=== PATIENT | female | born 1950 | race Caucasian/White ===

== ENCOUNTER → 2018-02-18 10:24 | Outpatient (CLI) | payer MEDICARE, OTHER, SELFPAY ==
[2018-02-18 11:04] LABS: Alanine Aminotransferase 47 IU/L (9-52); Albumin 4.5 g/dL (3.5-5.0); Albumin Globulin Ratio 1.6 (1.0-2.8); Alkaline Phosphatase 64 U/L (38-126); Aspartate Aminotransferase 41 IU/L (14-36); BUN Creatinine Ratio 21.4 (6-22); Bilirubin Total 0.7 mg/dL (0.2-1.3); Blood Urea Nitrogen 15 mg/dL (7-17); Calcium 9.9 mg/dL (8.4-10.2); Carbon Dioxide 30 mmol/L (22-32); Chloride 102 mmol/L (98-107); Estimated Glomerular Filt Rate > 60.0 mL/min (>60); Globulin 2.8 g/dL (1.7-4.1); Glucose 93 mg/dL (80-110); HEMOLYSIS < 15 (0-50); Potassium 4.2 mmol/L (3.4-5.1); Sodium 142 mmol/L (137-145); Total Protein 7.3 g/dL (6.3-8.2)
[2018-02-18 11:40] LABS: Vitamin D 25 Hydroxy (D3) 36.5 ng/mL (30.0-100.0)
[2018-02-18 15:54] LABS: Microalbumi Creatinin Ratio Ur 37.4 ug/mg CR (<30); Microalbumin Urine Random < 0.6 mg/dL (0-1.6)
== END ==
PROVIDERS: Visit Provider Physician Assistant
DX: I10 Essential (primary) hypertension (principal); M81.0 Age-related osteoporosis without current pathological fracture
CPT/HCPCS: 36415; 80053; 82043; 82306; 82570

== ENCOUNTER → 2018-08-26 11:44 | Outpatient (CLI) | payer MEDICARE, OTHER, SELFPAY ==
[2018-08-26 15:40] LABS: Alanine Aminotransferase 17 IU/L (9-52); Albumin 4.4 g/dL (3.5-5.0); Albumin Globulin Ratio 1.6 (1.0-2.8); Alkaline Phosphatase 58 U/L (38-126); Aspartate Aminotransferase 24 IU/L (14-36); Bilirubin Total 0.8 mg/dL (0.2-1.3); Blood Urea Nitrogen 14 mg/dL (7-17); Calcium 9.4 mg/dL (8.4-10.2); Carbon Dioxide 29 mmol/L (22-32); Chloride 103 mmol/L (98-107); Estimated Glomerular Filt Rate > 60.0 mL/min (>60); Globulin 2.7 g/dL (1.7-4.1); Glucose 91 mg/dL (80-110); HEMOLYSIS < 15 (0-50); Potassium 4.3 mmol/L (3.4-5.1); Sodium 139 mmol/L (137-145); Total Protein 7.1 g/dL (6.3-8.2)
== END ==
PROVIDERS: PCP Physician Assistant; Visit Provider Physician Assistant
DX: I10 Essential (primary) hypertension (principal); M81.0 Age-related osteoporosis without current pathological fracture
CPT/HCPCS: 36415; 80053; 82306

== ENCOUNTER 2018-10-27 13:27 | Day surgery (SDC) | payer MEDICARE, OTHER, SELFPAY ==
[2018-10-27 13:54] VITALS: BP 132/78; PULSE 96; RESP 14; TEMP 36.6; O2SAT 100; BMI 22.6
[2018-10-27] MEDS: SODIUM CHLORIDE 0.9% 1,000 ML 200 ML IV (14:09)
--- NOTE | 2018-10-27 14:27 | PM.HP.1 ---
History of Present Illness Date Patient Seen: 10/27/18 Time Patient Seen: 14:27 Chief complaint: 42047 Narrative: Patient presents for colorectal screening. They had a previous colonoscopy 5 years ago where a polyp was identified. On further history denies any recent gastrointestinal symptoms. No nausea, vomiting, abdominal pain, loss of appetite, unexplained weight loss, change in bowel habits, diarrhea, constipation, melena, hematochezia, or bright red blood per rectum. Patient History Medical History Asthma (Chronic ~1999) Chronic cough (Chronic ~1999) Hypertension (Chronic 1999) Osteoporosis (Chronic 2018) Surgical History Anesthesia (Resolved) History of elbow surgery (Resolved ~2013) History of eye surgery (Resolved ~1955) Family History (Updated 02/21/18 @ 14:46 by Nat Belcher) Father Diabetes mellitus Dementia Mother Congestive heart failure Hypertension Sister Heart disease Sister No problems noted. Social History household members: spouse Smoking Status: Never smoker second hand exposure: No alcohol intake: current (wine every couple of days.) substance use type: does not use Family & Social History Family History Father Diabetes mellitus Dementia Mother Congestive heart failure Hypertension Sister Heart disease Sister No problems noted. Social History: household members spouse Tobacco & Substance use: Smoking Status Never smoker alcohol intake current Meds Home Medications Medication Instructions Recorded Confirmed Type calcium gluconate 60 mg calcium 60 mg PO QAM tab 02/16/18 10/27/18 History (650 mg) tablet cholecalciferol (vitamin D3) 2,000 2,000 unit PO DAILY 02/16/18 10/27/18 History unit capsule alendronate 70 mg tablet 70 mg PO QWEEK #12 tab 07/12/18 10/27/18 Rx losartan 25 mg tablet 25 mg PO DAILY #90 tab 07/12/18 10/27/18 Rx varicella-zoster glycoE vacc-[id number] 50 mcg IM ONCE #1 each 07/12/18 10/27/18 Rx adj(PF) 50 mcg/0.5 mL IM susp, kit Allergies Allergy/AdvReac Type Severity Reaction Status Date / Time No Known Drug Allergies Allergy Verified 07/12/18 08:22 Review of Systems Review of Systems All systems reviewed & are unremarkable except as noted in HPI and below Exam Vital Signs (past 8 hours): - 10/27/18 13:54 Temperature 97.8 F Pulse Rate 96 H Respiratory Rate 14 Blood Pressure 132/78 Pulse Oximetry 100 Oxygen Delivery Method Room Air Narrative Exam Narrative: General-adult woman no acute distress, well nourished HEENT-moist mucous membranes, no scleral icterus Neck-supple with full range of motion, no lymphadenopathy Chest- no labored respirations, clear to auscultation bilaterally Cardiac-regular rate and rhythm Abdomen-soft, nontender, non distended Extremities-no edema, warm well perfused Neurological-alert and oriented x 3. No focal deficits Skin-normal temperature and turgor, no rashes or ulcers Assessment & Plan (1) Screening for colorectal cancer: Current visit: Yes Status: Acute Assessment & Plan narrative: Patient is requiring colorectal screening. Colonoscopy is recommended. Technical details were discussed. Risks, benefits, alternatives explained. Risks including but not limited to sedation, aspiration, bleeding, pain, missed lesion, incomplete examination, need for further radiographic studies, colonic perforation, need for major abdominal surgery, and all attendant risks major surgery were discussed at length. All questions were answered to their satisfaction, and they voiced understanding.
[2018-10-27] MEDS: GLUCAGON,HUMAN RECOMBINANT 1 MG/ML VIAL IV (14:41)
[2018-10-27] MEDS: MIDAZOLAM 5 MG/5 ML VIAL IV (14:51)
[2018-10-27] MEDS: fentaNYL 250 MCG/5 ML INJ IV (14:52)
[2018-10-27 15:05] VITALS: BP 105/57; PULSE 69; RESP 14; TEMP 36.6; O2SAT 97
[2018-10-27 15:10] VITALS: BP 103/59; PULSE 68; RESP 15; O2SAT 98
--- NOTE | 2018-10-27 15:11 | PM.OP.ENDO ---
Operative Date/Time/Diagnoses Date of procedure: 10/27/18 Time of procedure: 15:11 Pre-op diagnosis: screening colonoscopy previous adenoma 5 years ago Post-op diagnosis: same Procedure & Clinicians Study performed: Colonoscopy Same procedure as scheduled: Yes Indications: 67-year-old female with a previous adenomatous polyp 5 years ago presents for screening colonoscopy Surgeon: Salvatore Grant Procedure Notes SCOAP/Timeout: Performed Procedure in detail: Chief digital rectal exam was performed which was negative for masses. The scope was carefully inserted into the rectum and advanced to the colon. This news ileocecal valve was reached and identified. The scope was then carefully withdrawn. The colon was notable only for diverticulosis. The scope was retroflexed within the rectum demonstrated grade 1 internal hemorrhoids. Scope withdrawal time: 9 Sedation minutes: 27 Findings: diverticulosis Specimen(s): none sent Complications: none Impression: Normal colonoscopy Recommendations: Colonscopy in 10 years Disposition: same day surgery
[2018-10-27 15:15] VITALS: BP 100/58; PULSE 68; RESP 15; O2SAT 98
[2018-10-27 15:30] VITALS: BP 107/68; PULSE 60; RESP 12; TEMP 36.4; O2SAT 99
== END 2018-10-27 15:42 | disposition home or self-care (01) ==
PROVIDERS: PCP Physician Assistant; Visit Provider Surgery
PROC: 0DJD8ZZ Inspection of Lower Intestinal Tract, Via Natural or Artificial Opening Endoscopic (ICD-10-PCS; CPT 45378; principal; 2018-10-27 15:30)
DX: Z86.010 Personal history of colon polyps (principal); K57.30 Diverticulosis of large intestine without perforation or abscess without bleeding; K64.0 First degree hemorrhoids; I10 Essential (primary) hypertension; M81.0 Age-related osteoporosis without current pathological fracture
CPT/HCPCS: G0105; 99152; J1610; J2250; J3010

== ENCOUNTER → 2019-03-15 09:26 | Outpatient (CLI) | payer MEDICARE, OTHER, SELFPAY ==
--- NOTE | 2019-03-15 09:28 | DI.MG.S_ITS ---
BILATERAL DIGITAL SCREENING MAMMOGRAM 3D/2D WITH CAD: 03/15/2019 CLINICAL: Routine screening. Comparison is made to exams dated: 07/17/2016 mammogram, 06/07/2014 mammogram, and 05/24/2013 mammogram - [facility]. The tissue of both breasts is heterogeneously dense. This may lower the sensitivity of mammography. Current study was also evaluated with a Computer Aided Detection (CAD) system. No significant masses, calcifications, or other findings are seen in either breast. There has been no significant interval change. IMPRESSION: NEGATIVE There is no mammographic evidence of malignancy. A 1 year screening mammogram is recommended. This exam was interpreted at Station ID: [id number]. NOTE: For mammograms, a report in lay terms will be sent to the patient. Approximately 15% of breast malignancies will not be visualized mammographically. In the management of a palpable breast mass, a negative mammogram must not discourage biopsy of a clinically suspicious lesion. Electronically Signed By: Lm dacosta/new:03/20/2019 18:41:54 letter sent: Normal Exam ACR BI-RADS Category 1: Negative 3341F
== END ==
PROVIDERS: PCP Physician Assistant; Visit Provider Physician Assistant
DX: Z12.31 Encounter for screening mammogram for malignant neoplasm of breast (principal); M81.0 Age-related osteoporosis without current pathological fracture; Z78.0 Asymptomatic menopausal state; Z82.62 Family history of osteoporosis
CPT/HCPCS: 77063; 77067; 77080

== ENCOUNTER → 2020-03-18 08:25 | Outpatient (CLI) | payer MEDICARE, OTHER, SELFPAY ==
--- NOTE | 2020-03-18 11:56 | DI.MG.S_ITS ---
BILATERAL DIGITAL SCREENING MAMMOGRAM 3D/2D WITH CAD: 03/18/2020 CLINICAL: Routine screening. Comparison is made to exams dated: 07/17/2016 mammogram - [facility], 03/15/2019 mammogram - [facility], and 06/07/2014 mammogram - [facility]. The tissue of both breasts is heterogeneously dense. This may lower the sensitivity of mammography. Current study was also evaluated with a Computer Aided Detection (CAD) system. No significant masses, calcifications, or other findings are seen in either breast. There has been no significant interval change. IMPRESSION: NEGATIVE There is no mammographic evidence of malignancy. A 1 year screening mammogram is recommended. This exam was interpreted at Station ID: [id number]. NOTE: For mammograms, a report in lay terms will be sent to the patient. Approximately 15% of breast malignancies will not be visualized mammographically. In the management of a palpable breast mass, a negative mammogram must not discourage biopsy of a clinically suspicious lesion. Electronically Signed By: Bebeto art/new:03/18/2020 16:50:40 letter sent: Normal Exam ACR BI-RADS Category 1: Negative 3341F
[2020-03-19 18:11] LABS: Hepatitis B Surface Antigen NEGATIVE s/c (NEGATIVE)
== END ==
PROVIDERS: PCP Nurse Practitioner; Referring Provider Nurse Practitioner; Visit Provider Nurse Practitioner
DX: Z12.31 Encounter for screening mammogram for malignant neoplasm of breast (principal)
CPT/HCPCS: 36415; 77063; 77067; 87340

== ENCOUNTER → 2020-04-05 08:41 | Outpatient (CLI) | payer MEDICARE, OTHER, SELFPAY ==
[2020-04-05] MEDS: COVID-19 VACC #1, MRNA(MOD) 100 MCG/0.5 ML VIAL IM (08:43)
== END ==
PROVIDERS: PCP Nurse Practitioner; Visit Provider Internal Medicine
DX: Z23 Encounter for immunization (principal)
CPT/HCPCS: 0011A; 91301

== ENCOUNTER → 2020-05-03 09:00 | Outpatient (CLI) | payer MEDICARE, OTHER, SELFPAY ==
[2020-05-03] MEDS: COVID-19 VACC #2, MRNA(MOD) 100 MCG/0.5 ML VIAL IM (09:04)
== END ==
PROVIDERS: PCP Nurse Practitioner; Visit Provider Internal Medicine
DX: Z23 Encounter for immunization (principal)
CPT/HCPCS: 0012A; 91301

== ENCOUNTER → 2021-02-04 07:21 | Outpatient (CLI) | payer MEDICARE, OTHER, SELFPAY ==
[2021-02-04 08:44] LABS: Hemoglobin A1C% w Est Avg Glu 4.9 % (4.0-6.0)
[2021-02-04 08:50] LABS: Alanine Aminotransferase 23 IU/L (<35); Albumin 4.2 g/dL (3.5-5.0); Albumin Globulin Ratio 1.6 (1.0-2.8); Alkaline Phosphatase 52 U/L (38-126); Aspartate Aminotransferase 31 IU/L (14-36); BUN Creatinine Ratio 18.8 (6-22); Bilirubin Total 0.7 mg/dL (0.2-1.3); Blood Urea Nitrogen 16 mg/dL (7-17); Calcium 9.3 mg/dL (8.4-10.2); Carbon Dioxide 29 mmol/L (22-32); Chloride 103 mmol/L (98-107); Cholesterol 205 mg/dL (140-199); Estimated Glomerular Filt Rate > 60.0 mL/min (>60); Globulin 2.7 g/dL (1.7-4.1); Glucose 98 mg/dL (80-110); HDL Cholesterol 75 mg/dL (40-60); HEMOLYSIS < 15 (0-50); LDL Cholesterol Calculated 118 mg/dL (<100); Potassium 4.4 mmol/L (3.4-5.1); Sodium 139 mmol/L (137-145); Total Protein 6.9 g/dL (6.3-8.2); Triglycerides 58 mg/dL (35-150)
[2021-02-04 08:52] LABS: Creatinine Urine Random 164.7 mg/dL
[2021-02-04 08:57] LABS: Microalbumi Creatinin Ratio Ur 21.8 ug/mg CR (<30); Microalbumin Urine Random 3.6 mg/dL (0-1.6)
[2021-02-04 09:10] LABS: Free T3, Triiodothyronine Free 4.13 pg/mL (2.77-5.27)
[2021-02-04 09:24] LABS: Thyroid Stimulating Hormone 2.65 uIU/mL (0.47-4.68)
== END ==
PROVIDERS: PCP Nurse Practitioner; Referring Provider Nurse Practitioner; Visit Provider Nurse Practitioner
DX: Z79.899 Other long term (current) drug therapy (principal); E78.5 Hyperlipidemia, unspecified; I10 Essential (primary) hypertension; M85.80 Other specified disorders of bone density and structure, unspecified site; Z12.11 Encounter for screening for malignant neoplasm of colon; Z12.12 Encounter for screening for malignant neoplasm of rectum
CPT/HCPCS: 36415; 80053; 80061; 82043; 82570; 83036; 84439; 84443; 84481

== ENCOUNTER → 2021-02-24 13:54 | Outpatient (CLI) | payer MEDICARE, OTHER, SELFPAY ==
--- NOTE | 2021-03-10 08:53 | P.HOLT.S_ITS ---
Saturation Equipment Operator Report Referral & Results Date Patient Seen: 02/24/21 Requesting provider: Jerri White Indication: Arrhythmia Duration of monitoring (days): 3 Diary information: There were 3 patient triggered events and 3 patient diary entries Patient triggered events were variably associated with (within 45 seconds) sinus rhythm, ventricular bigeminy and simple PVCs Patient diary events were variably associated with (within 45 seconds) sinus rhythm, simple PVCs, ventricular bigeminy and ventricular bigeminy Data: Minimum heart rate identified was 50 beats per minute at 14:41 on 02/24/2021 Maximum sinus heart rate was 144 beats per minute at 13:05 on 02/27/2021 Maximum overall heart rate was 176 beats per minute at 18:18 on 02/25/2021 during a run of SVT Less than 1% of identified beats were supraventricular ectopic in origin Approximately 17.4% of identified beats were ventricular ectopic in origin which classify them as frequent, this would include a 1 minute 42nd run of ventricular bigeminy and 56.2nd run of ventricular trigeminy There were 2 runs of nonsustained ventricular tachycardia with the fastest and longest run being 4 beats at 162 beats per minute There were 10 runs of SVT the fastest being 16 beats at a rate of 176 beats per minute which was also the longest run. Some of these episodes of SVT may well be more true atrial tachycardia Impression: 3 day athletic monitor demonstrating rare runs of ventricular tachycardia and rare and very brief runs of SVT as well as frequent PVCs including very short duration runs of ventricular bigeminy and ventricular trigeminy Difficult to correlate patient reported symptoms with any one particular dysrhythmia as noted above
== END ==
PROVIDERS: PCP Nurse Practitioner; Referring Provider Nurse Practitioner; Visit Provider Nurse Practitioner
DX: I49.9 Cardiac arrhythmia, unspecified (principal)
CPT/HCPCS: 93242; 93244

== ENCOUNTER → 2021-03-19 08:20 | Outpatient (CLI) | payer MEDICARE, OTHER, SELFPAY ==
--- NOTE | 2021-03-19 | DI.MG.S_ITS ---
BILATERAL DIGITAL SCREENING MAMMOGRAM 3D/2D WITH CAD: 03/19/2021 CLINICAL: Routine screening. Comparison is made to exams dated: 03/18/2020 mammogram, 03/15/2019 mammogram - [facility], and 07/17/2016 mammogram - [facility]. The tissue of both breasts is heterogeneously dense. This may lower the sensitivity of mammography. Current study was also evaluated with a Computer Aided Detection (CAD) system. No significant masses, calcifications, or other findings are seen in either breast. There has been no significant interval change. IMPRESSION: NEGATIVE There is no mammographic evidence of malignancy. A 1 year screening mammogram is recommended. This exam was interpreted at Station ID: [id number]. NOTE: For mammograms, a report in lay terms will be sent to the patient. Approximately 15% of breast malignancies will not be visualized mammographically. In the management of a palpable breast mass, a negative mammogram must not discourage biopsy of a clinically suspicious lesion. Electronically Signed By: Bebeto art/new:03/19/2021 09:58:34 letter sent: Normal Exam ACR BI-RADS Category 1: Negative 3341F
== END ==
PROVIDERS: PCP Nurse Practitioner; Referring Provider Nurse Practitioner; Visit Provider Nurse Practitioner
DX: Z12.31 Encounter for screening mammogram for malignant neoplasm of breast (principal)
CPT/HCPCS: 77063; 77067

== ENCOUNTER → 2021-05-23 06:59 | Outpatient (CLI) | payer MEDICARE, OTHER, SELFPAY ==
[2021-05-23 08:21] LABS: Add Manual Diff / Slide Review NO; Basophils Absolute Auto 0 /uL (0-100); Basophils Percent Auto 1.1 % (0-2); Eosinophils Absolute Auto 100 /uL (0-450); Hematocrit 34.9 % (36-46); Lymphocytes Absolute Auto 1600 /uL (1100-4500); Lymphocytes Percent Auto 36.2 % (25-40); Mean Corpuscular HGB Conc 34.4 % (30-36); Mean Corpuscular Hemoglobin 31.1 PG (26-34); Mean Corpuscular Volume 90.6 fL (80-100); Monocytes Absolute Auto 400 /uL (0-900); Monocytes Percent Auto 9.5 % (3-14); Neutrophils Absolute Auto 2300 /uL (1500-7000); Neutrophils Percent Auto 51.2 % (50-75); Platelet Count 171 X10^3/uL (150-400); Red Blood Cell Count 3.85 X10^6/uL (4.0-5.2); Red Cell Distribution Width 12.9 % (11.6-14.8); White Blood Cell Count 4.5 X10^3/uL (4.5-11.0)
[2021-05-23 08:41] LABS: BUN Creatinine Ratio 18.2 (6-22); Blood Urea Nitrogen 14 mg/dL (7-17); Carbon Dioxide 27 mmol/L (22-32); Chloride 107 mmol/L (98-107); Cholesterol 183 mg/dL (140-199); Estimated Glomerular Filt Rate > 60.0 mL/min (>60); Glucose 95 mg/dL (80-110); HDL Cholesterol 59 mg/dL (40-60); HEMOLYSIS < 15 (0-50); LDL Cholesterol Calculated 108 mg/dL (<100); Magnesium 1.9 mg/dL (1.6-2.3); Potassium 3.9 mmol/L (3.4-5.1); Sodium 141 mmol/L (137-145); Triglycerides 81 mg/dL (35-150)
[2021-05-23 09:13] LABS: TSH w/ Reflex to FT4 2.86 uIU/mL (0.47-4.68)
== END ==
PROVIDERS: PCP Nurse Practitioner; Referring Provider Internal Medicine Cardiovascular Disease; Visit Provider Internal Medicine Cardiovascular Disease
DX: I10 Essential (primary) hypertension (principal); I49.3 Ventricular premature depolarization; R00.2 Palpitations; Z72.89 Other problems related to lifestyle
CPT/HCPCS: 36415; 80048; 80061; 83735; 84443; 85025

== ENCOUNTER → 2021-07-04 13:35 | Outpatient (CLI) | payer MEDICARE, OTHER, SELFPAY ==
--- NOTE | 2021-07-04 | DI.NM.S_ITS ---
PROCEDURE: NM EXERCISE TREADMILL NON NUC COMPARISON: None. INDICATIONS: Ventricular premature depolarization FINDINGS: Rest ECG sinus rhythm with PVCs. Olegario protocol 8:19, maximum heart rate 151 (101% peak predicted), peak blood pressure 180/102, 10.1 METS, HENRRY -16%. Stress ECG sinus tachycardia, no ST segment changes. Recovery ECG sinus rhythm, one episode 3 beats NSVT, PVCs in a bigeminal pattern. Patient did not have exertional chest discomfort. IMPRESSION: No evidence of exercise-induced ischemia. Baseline PVCs with increased frequency post exercise. Good exercise capacity. Dictated by: Aneta Huerta D.O. on 07/04/2021 at 16:14 Approved by: Aneta Huerta D.O. on 07/04/2021 at 16:20
--- NOTE | 2021-07-04 | DI.ECHO.S_ITS ---
[place] +---------+ : : [address] [place] : : : : [id number] : : : : Phone: [phone]+ Echocardiogram Report + + :Name: SANTIAGO RAMIREZ Study Date: 07/04/2021 Height: 68 in : :[facility] ReadingLocation: Weight: 160 lb : : Gender: Female BSA: 1.9 m2 : :: 1950 Age: 70 yrs BP: 185/102 mmHg: :Reason For Study: Arrhythmia : :Ordering Physician: NIKHIL, : :CHRIST Performed By: Zain Metz : :Referring: CHRIST REYES : + + Interpretation Summary 1) Mildly to moderately enlarged left ventricle with normal systolic function (EF 55-60%). 2) Normal right ventricular size and function. 3) There is mild aortic stenosis. 4) There is moderate mitral regurgitation. 5) There is mild to moderate aortic regurgitation. 6) The IVC is dilated (diameter is greater than 2.1 cm) and it collapses less than 50% with a sniff. This suggests a high right atrial pressure of 15 mm Hg. 7) No prior echo available for comparison. Procedure: The study quality was technically adequate. A two-dimensional transthoracic echocardiogram with color flow and Doppler was performed. There is no prior echocardiogram noted for this patient. Left Ventricle: The left ventricle is mild-moderately dilated. There is normal left ventricular wall thickness. Left ventricular systolic function is normal. The ejection fraction is estimated to be 55-60%. There are no focal wall motion abnormalities. Diastolic function could not be accurately assessed due to confounding valvular disease. Right Ventricle: The right ventricle is normal in size and function. Atria: The left atrium is severely dilated. Right atrial size is normal. The interatrial septum grossly appears intact with no obvious evidence for an atrial septal defect. Mitral Valve: The mitral valve leaflets appear mildly thickened, but open well. There is mild mitral annular calcification. There is moderate mitral regurgitation. Aortic Valve: The aortic valve is grossly normal. There is mild aortic stenosis. There is mild to moderate aortic regurgitation. Tricuspid Valve: The tricuspid valve is normal in structure and function. There is mild tricuspid regurgitation. Pulmonary artery pressures cannot be estimated because of the lack of a measurable TR jet velocity. Pulmonic Valve: The pulmonic valve is not well visualized. There is no pulmonic valvular regurgitation. Great Vessels: The aortic root is normal size. The ascending aorta could not be visualized. The IVC is dilated (diameter is greater than 2.1 cm) and it collapses less than 50% with a sniff. This suggests a high right atrial pressure of 15 mm Hg. Pericardium/ Pleura There is no pericardial effusion. There is no pleural effusion. MMode/2D Measurements & Calculations LVIDd: 5.8 cm LVOT diam: 1.9 cm LVIDs: 4.0 cm Ao root diam: 3.0 cm FS: 31.3 % IVSd: 0.94 cm LVPWd: 0.87 cm LV knowles. diameter/BSA (cm/m^2): 3.1 LV sys. diameter/BSA (cm/m^2): 2.1 LA A2 area: 24.3 cm2 RA long axis: 3.8 cm LA A4 area: 27.7 cm2 RA area: 9.8 cm2 LA length (vol): 6.0 cm RA vol: 21.5 ml LA vol: 95.4 ml RA : 11.6 ml/m2 LA vol index: 51.3 ml/m2 IVC diam: 2.4 cm TAPSE: 2.9 cm Doppler Measurements & Calculations Ao V2 max: 163.1 cm/sec LVOT Max Jerson: 102.7 cm/sec Ao V2 mean: 111.6 cm/sec LV V1 max P.2 mmHg Ao max P.6 mmHg LV V1 VTI: 22.9 cm Ao mean P.6 mmHg MIHIR(I,D): 1.8 cm2 Ao V2 VTI: 35.0 cm MIHIR(V,D): 1.7 cm2 sev ratio: 0.65 MIHIR indexed to BSA (cm^2/m^2): 0.95 AI P1/2t: 482.1 msec AI dec slope: 338.0 cm/sec2 MV E max jerson: 102.8 cm/sec MR VTI: 239.6 cm MV A max jerson: 71.0 cm/sec MV E/A: 1.4 Med Peak E' Jerson: 9.1 cm/sec E/E' med: 11.3 Lat Peak E' Jerson: 10.3 cm/sec E/E' lat: 9.9 E/e' average: 10.6 MV dec time: 0.21 sec MR ERO: 0.15 cm2 MR PISA: 3.2 cm2 SV(LVOT): 61.9 ml MR flow rate: 98.5 cm3/sec MR PISA radius: 0.71 cm Reading Physician:03:02 PM
== END ==
PROVIDERS: PCP Nurse Practitioner; Referring Provider Internal Medicine Cardiovascular Disease; Visit Provider Internal Medicine Cardiovascular Disease
DX: I08.3 Combined rheumatic disorders of mitral, aortic and tricuspid valves (principal); I49.3 Ventricular premature depolarization
CPT/HCPCS: 93017; 93306

== ENCOUNTER → 2022-02-02 08:56 | Outpatient (CLI) | payer MEDICARE, OTHER, SELFPAY ==
[2022-02-02 10:01] LABS: Add Manual Diff / Slide Review NO; Basophils Absolute Auto 0 /uL (0-100); Basophils Percent Auto 0.5 % (0-2); Eosinophils Absolute Auto 100 /uL (0-450); Eosinophils Percent Auto 1.1 % (2-4); Hemoglobin 12.7 g/dL (12.0-16.0); Lymphocytes Absolute Auto 1400 /uL (1100-4500); Lymphocytes Percent Auto 25.8 % (25-40); Mean Corpuscular HGB Conc 33.5 % (30-36); Mean Corpuscular Hemoglobin 29.9 PG (26-34); Mean Corpuscular Volume 89.2 fL (80-100); Monocytes Absolute Auto 600 /uL (0-900); Monocytes Percent Auto 10.6 % (3-14); Neutrophils Absolute Auto 3200 /uL (1500-7000); Platelet Count 218 X10^3/uL (150-400); Red Blood Cell Count 4.26 X10^6/uL (4.0-5.2); Red Cell Distribution Width 13.1 % (11.6-14.8); White Blood Cell Count 5.2 X10^3/uL (4.5-11.0)
[2022-02-02 10:11] LABS: BUN Creatinine Ratio 22.4 (6-22); Blood Urea Nitrogen 19 mg/dL (7-17); Calcium 9.4 mg/dL (8.4-10.2); Carbon Dioxide 30 mmol/L (22-32); Chloride 105 mmol/L (98-107); Estimated Glomerular Filt Rate > 60 mL/min (>60); Glucose 100 mg/dL (80-110); HEMOLYSIS < 15 (0-50); Potassium 4.1 mmol/L (3.4-5.1); Sodium 139 mmol/L (137-145)
== END ==
PROVIDERS: PCP Nurse Practitioner; Referring Provider Internal Medicine Cardiovascular Disease; Visit Provider Internal Medicine Cardiovascular Disease
DX: I10 Essential (primary) hypertension (principal)
CPT/HCPCS: 36415; 80048; 85025

== ENCOUNTER → 2022-04-23 12:23 | Outpatient (CLI) | payer MEDICARE, OTHER, SELFPAY ==
--- NOTE | 2022-04-23 12:24 | DI.MG.S_ITS ---
BILATERAL DIGITAL SCREENING MAMMOGRAM 3D/2D WITH CAD: 04/23/2022 CLINICAL: Routine screening. Comparison is made to exams dated: 03/19/2021 mammogram, 03/18/2020 mammogram, and 03/15/2019 mammogram - [facility]. Both breasts are heterogeneously dense, which may obscure small masses (category c / 51-75% glandular tissue). Current study was also evaluated with a Computer Aided Detection (CAD) system. No significant masses, calcifications, or other findings are seen in either breast. There has been no significant interval change. IMPRESSION: NEGATIVE There is no mammographic evidence of malignancy. A 1 year screening mammogram is recommended. Based on the Tyrer Cuzick model (a risk assessment model) the patient's lifetime risk is 6.6% and her 10 year risk is 4.2%. According to the ACR, ACS, and NCCN guidelines, an annual breast MRI exam along with mammogram is recommended if the patient's lifetime risk is 20% or greater. This exam was interpreted at Station ID: [id number]. NOTE: For mammograms, a report in lay terms will be sent to the patient. Approximately 15% of breast malignancies will not be visualized mammographically. In the management of a palpable breast mass, a negative mammogram must not discourage biopsy of a clinically suspicious lesion. Electronically Signed By: Bebeto art/new:04/23/2022 13:51:07 letter sent: Normal Exam ACR BI-RADS Category 1: Negative 3341F
== END ==
PROVIDERS: PCP Nurse Practitioner; Referring Provider Nurse Practitioner; Visit Provider Nurse Practitioner
DX: Z12.31 Encounter for screening mammogram for malignant neoplasm of breast (principal)
CPT/HCPCS: 77063; 77067

== ENCOUNTER → 2022-09-30 15:44 | Outpatient (CLI) | payer MEDICARE, OTHER, SELFPAY ==
[2022-09-30 17:18] LABS: Add Manual Diff / Slide Review NO; Basophils Absolute Auto 100 /uL (0-100); Eosinophils Absolute Auto 100 /uL (0-450); Hematocrit 36.6 % (36-46); Hemoglobin 12.5 g/dL (12.0-16.0); Lymphocytes Absolute Auto 1500 /uL (1100-4500); Lymphocytes Percent Auto 26.6 % (25-40); Mean Corpuscular HGB Conc 34.1 % (30-36); Mean Corpuscular Hemoglobin 31.1 PG (26-34); Mean Corpuscular Volume 91.4 fL (80-100); Monocytes Absolute Auto 600 /uL (0-900); Monocytes Percent Auto 10.7 % (3-14); Neutrophils Absolute Auto 3500 /uL (1500-7000); Neutrophils Percent Auto 60.7 % (50-75); Platelet Count 218 X10^3/uL (150-400); Red Cell Distribution Width 13.1 % (11.6-14.8); White Blood Cell Count 5.7 X10^3/uL (4.5-11.0)
[2022-09-30 17:37] LABS: Alanine Aminotransferase 27 IU/L (<35); Albumin 4.2 g/dL (3.5-5.0); Albumin Globulin Ratio 1.4 (1.0-2.8); Alkaline Phosphatase 61 U/L (38-126); Aspartate Aminotransferase 31 IU/L (14-36); BUN Creatinine Ratio 29.7 (6-22); Bilirubin Total 0.3 mg/dL (0.2-1.3); Blood Urea Nitrogen 22 mg/dL (7-17); C-Reactive Protein Quant < 0.5 mg/dL (<1.0); Calcium 9.1 mg/dL (8.4-10.2); Carbon Dioxide 29 mmol/L (22-32); Chloride 101 mmol/L (98-107); Estimated Glomerular Filt Rate > 60 mL/min (>60); Globulin 2.9 g/dL (1.7-4.1); Glucose 93 mg/dL (80-110); HEMOLYSIS < 15 (0-50); Potassium 4.1 mmol/L (3.4-5.1); Sodium 137 mmol/L (137-145); Total Protein 7.1 g/dL (6.3-8.2)
[2022-09-30 17:42] LABS: Erythrocyte Sedimentation Rate 25 MM/HR (0-20)
[2022-09-30 17:43] LABS: Rheumatoid Factor < 8.6 IU/mL (<12.0)
[2022-09-30 17:52] LABS: Free T3, Triiodothyronine Free 3.61 pg/mL (2.77-5.27); Free T4, Direct Thyroxine 0.98 ng/dL (0.78-2.19)
[2022-09-30 18:06] LABS: Thyroid Stimulating Hormone 1.27 uIU/mL (0.47-4.68)
== END ==
PROVIDERS: PCP Nurse Practitioner; Referring Provider Nurse Practitioner; Visit Provider Nurse Practitioner
DX: M35.00 Sjogren syndrome, unspecified (principal); R68.2 Dry mouth, unspecified
CPT/HCPCS: 36415; 80053; 84439; 84443; 84481; 85025; 85651; 86140; 86430

== ENCOUNTER → 2022-10-02 14:10 | Outpatient (CLI) | payer MEDICARE, OTHER, SELFPAY ==
[2022-10-06 19:35] LABS: ANA Screen, IFA Positive (.)
== END ==
PROVIDERS: PCP Nurse Practitioner; Referring Provider Nurse Practitioner; Visit Provider Nurse Practitioner
DX: R70.0 Elevated erythrocyte sedimentation rate (principal)
CPT/HCPCS: 36415; 86038

== ENCOUNTER → 2023-01-07 12:28 | Outpatient (CLI) | payer MEDICARE, OTHER, SELFPAY ==
--- NOTE | 2023-01-07 | DI.ECHO.S_ITS ---
[facility]---------+ [facility] +---------+ : : [address] [place] : : : : [id number] : : : : Phone: [phone]+ Echocardiogram Report + + :Name: SANTIAGO RAMIREZ Study Date: 01/07/2023 Height: 68 in : :[facility] ReadingLocation: Weight: 150 lb : : Gender: Female BSA: 1.8 m2 : :: 1950 Age: 72 yrs BP: 139/80 mmHg: :Reason For Study: MITRAL INSUFFICIENCY : :Ordering Physician: NIKHIL, : :CHRIST Performed By: Bri Gómez : :Referring: CHRIST REYES : + + Interpretation Summary 1) Mildly enlarged left ventricle with normal systolic function (EF 60-65%). 2) Normal right ventricular size and function. 3) There is mild to moderate mitral regurgitation. 4) Compmared to the Echo done 07/04/2021, mitral regurgitatoin has improved from mild-moderate to mild on this study and LV enlargement has improved from mild-moderate to mild on this study. Procedure: A two-dimensional transthoracic echocardiogram with color flow and Doppler was performed. The study quality was technically adequate. Comparison is made with the echocardiogram of 07/04/2021. The patient was in sinus rhythm with heart rates between 63-70 bpm during the exam. Left Ventricle: The left ventricle is mildly dilated. There is normal left ventricular wall thickness. The ejection fraction is estimated to be 60-65%. There are no focal wall motion abnormalities. Right Ventricle: The right ventricle is normal in size and function. Atria: The left atrium is moderately dilated. Right atrial size is normal. There is no Doppler evidence for an interatrial shunt. Mitral Valve: The mitral valve leaflets appear mildly thickened, but open well. There is mild to moderate mitral regurgitation. The mitral regurgitant jet is eccentrically directed. Aortic Valve: The aortic valve opens well. There is mild aortic valve sclerosis. There is no aortic valve stenosis. There is trace aortic regurgitation. Tricuspid Valve: The tricuspid valve is normal in structure and function. The right ventricular systolic pressure is estimated to be at least 28 mmHg based on an estimated right atrial pressure of 8 mm Hg. There is mild tricuspid regurgitation. Pulmonic Valve: The pulmonic valve is not well visualized. There is no pulmonic valvular regurgitation. Great Vessels: The aortic root is normal size. The ascending aorta could not be visualized. The IVC is dilated (diameter is greater than 2.1 cm) yet it collapses greater than 50% with a sniff. This suggests a right atrial pressure of 8 mm Hg. Pericardium/ Pleura There is no pericardial effusion. There is no pleural effusion. MMode/2D Measurements & Calculations LVIDd: 5.4 cm LVOT diam: 2.0 cm LVIDs: 3.7 cm Ao root diam: 2.9 cm FS: 30.0 % Ao Arch Diam (Prox Trans): 2.4 cm EPSS: 0.45 cm IVSd: 0.79 cm LVPWd: 0.76 cm LV knowles. diameter/BSA (cm/m^2): 3.0 LV sys. diameter/BSA (cm/m^2): 2.1 LA A2 area: 23.3 cm2 RA long axis: 4.1 cm LA A4 area: 20.7 cm2 RA area: 12.8 cm2 LA length (vol): 5.5 cm RA vol: 34.2 ml LA vol: 74.7 ml RA : 18.9 ml/m2 LA vol index: 41.3 ml/m2 IVC diam: 2.1 cm RVD1 (basal): 3.7 cm RVD2 (mid): 3.3 cm TAPSE: 1.7 cm Doppler Measurements & Calculations Ao V2 max: 160.9 cm/sec LVOT Max Jerson: 127.4 cm/sec Ao V2 mean: 116.0 cm/sec LV V1 max P.5 mmHg Ao max P.4 mmHg LV V1 VTI: 27.1 cm Ao mean P.0 mmHg MIHIR(I,D): 2.1 cm2 Ao V2 VTI: 40.2 cm MIHIR(V,D): 2.5 cm2 sev ratio: 0.68 MIHIR indexed to BSA (cm^2/m^2): 1.2 AI P1/2t: 574.4 msec AI dec slope: 233.4 cm/sec2 MV E max jerson: 96.6 cm/sec TR max jerson: 222.2 cm/sec MV A max jerson: 59.5 cm/sec TR max P.7 mmHg MV E/A: 1.6 PA V2 max: 102.6 cm/sec Med Peak E' Jerson: 8.6 cm/sec PA V2 mean: 78.6 cm/sec E/E' med: 11.3 PA mean P.7 mmHg Lat Peak E' Jerson: 12.9 cm/sec PA pr(Accel): 27.6 mmHg E/E' lat: 7.5 E/e' average: 9.4 MV dec time: 0.21 sec MR PISA: 1.9 cm2 SV(LVOT): 85.9 ml MR flow rate: 81.1 cm3/sec MR PISA radius: 0.55 cm Reading Physician:04:34 PM
== END ==
PROVIDERS: PCP Nurse Practitioner; Referring Provider Internal Medicine Cardiovascular Disease; Visit Provider Internal Medicine Cardiovascular Disease
DX: I08.3 Combined rheumatic disorders of mitral, aortic and tricuspid valves (principal)
CPT/HCPCS: 93306

== ENCOUNTER → 2023-01-16 08:02 | Outpatient (CLI) | payer MEDICARE, OTHER, SELFPAY ==
[2023-01-16 09:04] LABS: Blood Urea Nitrogen 18 mg/dL (7-17); Calcium 9.5 mg/dL (8.4-10.2); Carbon Dioxide 29 mmol/L (22-32); Chloride 103 mmol/L (98-107); Estimated Glomerular Filt Rate > 60 mL/min (>60); Glucose 99 mg/dL (80-110); HEMOLYSIS < 15 (0-50); Potassium 4.3 mmol/L (3.4-5.1); Sodium 139 mmol/L (137-145)
== END ==
PROVIDERS: PCP Nurse Practitioner; Referring Provider Internal Medicine Cardiovascular Disease; Visit Provider Internal Medicine Cardiovascular Disease
DX: I10 Essential (primary) hypertension (principal)
CPT/HCPCS: 36415; 80048

== ENCOUNTER → 2023-04-28 08:27 | Outpatient (CLI) | payer MEDICARE, OTHER, SELFPAY ==
--- NOTE | 2023-04-28 | DI.MG.S_ITS ---
BILATERAL DIGITAL SCREENING MAMMOGRAM 3D/2D WITH CAD: 04/28/2023 CLINICAL: Routine screening. Comparison is made to exams dated: 04/23/2022 mammogram, 03/19/2021 mammogram, and 03/18/2020 mammogram - [facility]. Both breasts are heterogeneously dense, which may obscure small masses (category c / 51-75% glandular tissue). Current study was also evaluated with a Computer Aided Detection (CAD) system. No significant masses, calcifications, or other findings are seen in either breast. There has been no significant interval change. IMPRESSION: NEGATIVE There is no mammographic evidence of malignancy. A 1 year screening mammogram is recommended. Based on the Tyrer Cuzick model (a risk assessment model) the patient's lifetime risk is 6.2% and her 10 year risk is 4.3%. According to the ACR, ACS, and NCCN guidelines, an annual breast MRI exam along with mammogram is recommended if the patient's lifetime risk is 20% or greater. This exam was interpreted at Station ID: [id number]. NOTE: For mammograms, a report in lay terms will be sent to the patient. Approximately 15% of breast malignancies will not be visualized mammographically. In the management of a palpable breast mass, a negative mammogram must not discourage biopsy of a clinically suspicious lesion. Electronically Signed By: Nelida rodriguez/new:04/28/2023 13:50:02 letter sent: Normal Exam ACR BI-RADS Category 1: Negative 3341F
== END ==
LOC: MAMMO 08:27
PROVIDERS: PCP Nurse Practitioner; Referring Provider Nurse Practitioner; Visit Provider Nurse Practitioner
DX: Z12.31 Encounter for screening mammogram for malignant neoplasm of breast (principal); R92.333 Mammographic heterogeneous density, bilateral breasts
CPT/HCPCS: 77063; 77067

== ENCOUNTER → 2023-08-31 11:01 | Outpatient (CLI) | payer MEDICARE, OTHER, SELFPAY ==
--- NOTE | 2023-08-31 11:03 | DI.RAD.S_ITS ---
PROCEDURE: XR DEXA AXIAL SKELETON INDICATIONS: menopausal osteoporosis COMPARISON: [facility], CR, XR DEXA AXIAL SKELETON, 03/15/2019, 10:19. FINDINGS: Lumbar Spine: Bone mineral density 1.073 g/cm2, T score 0.2, previously 0. Left Hip: Bone mineral density 0.748 g/cm2, T score -1.6, previously -2.1. Left Femoral Neck: Bone mineral density 0.577 g/cm2, T score -2.4, osteopenia. Right Hip: Bone mineral density 0.793 g/cm2, T score -1.2, previously -1.7. Right Femoral Neck: Bone mineral density 0.666 g/cm2, T score -1.7, osteopenia. Fracture Risk Calculation (when applicable): 10-year fracture risk of a major osteoporotic fracture 14 and of a hip fracture 3.5. (T score greater or equal to -1.0 to: NORMAL) (T score from -1.1 to -2.4: OSTEOPENIA) (T score less than or equal to -2.5: OSTEOPOROSIS) IMPRESSION: Osteopenia Follow-up guidelines as follows: Osteoporosis: Consider a repeat DEXA and Vertebral Fracture Assessment (VFA) exam in 2 years or sooner if medically necessary, to reassess this patient's status. Osteopenia: Consider a repeat DEXA in 2-3 years to reassess this patient's status, or if there is a new clinical indication. Normal: Consider a repeat DEXA in 5 years or sooner, or if there is a new clinical indication. All treatment decisions require clinical judgment and consideration of individual patient factors, including patient preferences, comorbidities, previous drug use, risk factors not captured in the FRAX model (e.g., frailty, falls, vitamin D deficiency, increased bone turnover, interval significant decline in bone density ) and possible under- or over-estimation of fracture risk by FRAX. In addition, the NOF Guide recommends that FDA-approved medical therapies be considered in postmenopausal women and men age >= 50 years with a: * Hip or vertebral (clinical or morphometric) fracture * T-score of <=-2.5 at the spine or hip * Ten-year fracture probability by FRAX of >= 3% for hip fracture or >=20% for major osteoporotic fracture. People with diagnosed cases of osteoporosis or at high risk for fracture should have regular bone mineral density tests. For patients eligible for Medicare, routine testing is allowed once every 2 years. The testing frequency can be increased to one year for patients who have rapidly progressing disease, those who are receiving or discontinuing medical therapy to restore bone mass, or have additional risk factors. Dictated by: Brock Saucedo M.D. on 08/31/2023 at 12:43 Approved by: Brock Saucedo M.D. on 08/31/2023 at 12:54
== END ==
PROVIDERS: PCP Nurse Practitioner; Referring Provider Nurse Practitioner; Visit Provider Nurse Practitioner
DX: M81.0 Age-related osteoporosis without current pathological fracture (principal); N95.1 Menopausal and female climacteric states
CPT/HCPCS: 77080

== ENCOUNTER → 2023-11-11 08:49 | Outpatient (CLI) | payer MEDICARE, OTHER, SELFPAY ==
[2023-11-11 10:31] LABS: Alanine Aminotransferase 23 IU/L (<35); Albumin 4.2 g/dL (3.5-5.0); Albumin Globulin Ratio 1.8 (1.0-2.8); Alkaline Phosphatase 62 U/L (38-126); Aspartate Aminotransferase 29 IU/L (14-36); BUN Creatinine Ratio 18.7 (6-22); Bilirubin Total 0.8 mg/dL (0.2-1.3); Blood Urea Nitrogen 17 mg/dL (7-17); Calcium 9.3 mg/dL (8.4-10.2); Carbon Dioxide 26 mmol/L (22-32); Chloride 105 mmol/L (98-107); Cholesterol 236 mg/dL (140-199); Estimated Glomerular Filt Rate > 60 mL/min (>60); Globulin 2.4 g/dL (1.7-4.1); Glucose 94 mg/dL (80-110); HDL Cholesterol 83 mg/dL (40-60); HEMOLYSIS < 15 (0-50); LDL Cholesterol Calculated 141 mg/dL (<100); Potassium 4.4 mmol/L (3.4-5.1); Sodium 138 mmol/L (137-145); Total Protein 6.6 g/dL (6.3-8.2); Triglycerides 60 mg/dL (35-150)
[2023-11-11 10:51] LABS: Free T3, Triiodothyronine Free 3.59 pg/mL (2.77-5.27)
[2023-11-11 11:04] LABS: Thyroid Stimulating Hormone 1.56 uIU/mL (0.47-4.68)
[2023-11-11 11:23] LABS: Creatinine Urine Random 140.64 mg/dL
[2023-11-12 01:55] LABS: Hep C Virus Ab w/Reflex Quant NEGATIVE s/c (NEGATIVE)
== END ==
LOC: LAB 08:51
PROVIDERS: PCP Nurse Practitioner; Referring Provider Nurse Practitioner; Visit Provider Nurse Practitioner
DX: Z11.59 Encounter for screening for other viral diseases (principal); E78.5 Hyperlipidemia, unspecified; I10 Essential (primary) hypertension; I49.9 Cardiac arrhythmia, unspecified; M81.0 Age-related osteoporosis without current pathological fracture; Z79.899 Other long term (current) drug therapy
CPT/HCPCS: 36415; 80053; 80061; 82043; 82570; 84439; 84443; 84481; 86803

== ENCOUNTER → 2023-12-22 08:06 | Outpatient (CLI) | payer MEDICARE, OTHER, SELFPAY ==
[2023-12-22 08:43] LABS: Hemoglobin 12.9 g/dL (12.0-16.0); Mean Corpuscular Hemoglobin 30.3 PG (26-34); Mean Corpuscular Volume 89.2 fL (80-100); Platelet Count 199 X10^3/uL (150-400); Red Blood Cell Count 4.26 X10^6/uL (4.0-5.2); Red Cell Distribution Width 14.2 % (11.6-14.8); White Blood Cell Count 4.9 X10^3/uL (4.5-11.0)
[2023-12-22 09:20] LABS: Blood Urea Nitrogen 18 mg/dL (7-17); Calcium 9.5 mg/dL (8.4-10.2); Carbon Dioxide 27 mmol/L (22-32); Chloride 104 mmol/L (98-107); Cholesterol 254 mg/dL (140-199); Estimated Glomerular Filt Rate > 60 mL/min (>60); Glucose 100 mg/dL (80-110); HDL Cholesterol 84 mg/dL (40-60); HEMOLYSIS < 15 (0-50); LDL Cholesterol Calculated 160 mg/dL (<100); Potassium 4.3 mmol/L (3.4-5.1); Sodium 138 mmol/L (137-145); Triglycerides 49 mg/dL (35-150)
== END ==
PROVIDERS: PCP Student in an Organized Health Care Education/Training Program; Referring Provider Internal Medicine Cardiovascular Disease; Visit Provider Internal Medicine Cardiovascular Disease
DX: I10 Essential (primary) hypertension (principal)
CPT/HCPCS: 36415; 80048; 80061; 85027

== ENCOUNTER → 2024-04-18 13:32 | Outpatient (CLI) | payer MEDICARE, OTHER, SELFPAY ==
--- NOTE | 2024-04-18 13:34 | DI.US.S_ITS ---
PROCEDURE: US SOFT TISSUE HEAD AND NECK INDICATIONS: firm nodule - left neck TECHNIQUE: Real-time scanning was performed of the neck region of interest, with image documentation. COMPARISON: None. FINDINGS: At the area of interest in the left neck, there are normal muscle fascial planes. Normal vascularity. IMPRESSION: Unremarkable left neck soft tissue ultrasound. No mass. Approved by: Esau Kaplan M.D. on 04/18/2024 at 18:06
== END ==
PROVIDERS: Family Provider Student in an Organized Health Care Education/Training Program; PCP Student in an Organized Health Care Education/Training Program; Referring Provider Student in an Organized Health Care Education/Training Program; Visit Provider Student in an Organized Health Care Education/Training Program
DX: R22.1 Localized swelling, mass and lump, neck (principal)
CPT/HCPCS: 76536

== ENCOUNTER → 2024-05-02 15:14 | Outpatient (CLI) | payer MEDICARE, OTHER, SELFPAY ==
--- NOTE | 2024-05-02 15:15 | DI.MG.S_ITS ---
BILATERAL DIGITAL SCREENING MAMMOGRAM 3D/2D WITH CAD: 05/02/2024 CLINICAL: Routine screening. Comparison is made to exams dated: 04/28/2023 mammogram, 03/19/2021 mammogram, and 04/23/2022 mammogram - [facility]. The breasts are heterogeneously dense, which may obscure small masses (category c / 51-75% glandular tissue). Current study was also evaluated with a Computer Aided Detection (CAD) system. No significant masses, calcifications, or other findings are seen in either breast. There has been no significant interval change. IMPRESSION: NEGATIVE There is no mammographic evidence of malignancy. A 1 year screening mammogram is recommended. Based on the Tyrer Cuzick model (a risk assessment model) the patient's lifetime risk is 5.9% and her 10 year risk is 4.4%. According to the ACR, ACS, and NCCN guidelines, an annual breast MRI exam along with mammogram is recommended if the patient's lifetime risk is 20% or greater. This exam was interpreted at Station ID: [id number]. NOTE: For mammograms, a report in lay terms will be sent to the patient. Approximately 15% of breast malignancies will not be visualized mammographically. In the management of a palpable breast mass, a negative mammogram must not discourage biopsy of a clinically suspicious lesion. Electronically Signed By: Rohith dietz/new:05/03/2024 06:39:34 letter sent: Normal Exam ACR BI-RADS Category 1: Negative
== END ==
PROVIDERS: Family Provider Student in an Organized Health Care Education/Training Program; PCP Student in an Organized Health Care Education/Training Program; Referring Provider Student in an Organized Health Care Education/Training Program; Visit Provider Student in an Organized Health Care Education/Training Program
DX: Z12.31 Encounter for screening mammogram for malignant neoplasm of breast (principal); R92.333 Mammographic heterogeneous density, bilateral breasts
CPT/HCPCS: 77063; 77067

== ENCOUNTER 2024-05-16 08:15 | Outpatient (RCR) | payer MEDICARE, OTHER, SELFPAY ==
--- NOTE | 2024-04-19 12:03 | PT.OIE ---
Current Diagnoses Stiffness of right hip, not elsewhere classified (04/19/24) Stiffness of left hip, not elsewhere classified (04/19/24) Stiffness of other specified joint, not elsewhere classified (04/19/24) Sciatica, left side (04/19/24) Difficulty in walking, not elsewhere classified (04/19/24) Weakness (04/19/24) Past Medical History (Last Updated 11/17/23 @ 15:27 by FOREST Erickson) Asthma (~1999) Bigeminal rhythm Chronic cough (~1999) Hyperlipemia Hypertension (2000) longterm use of alendronate therapy Mild hyperlipidemia Osteoporosis (2018) PSVT (paroxysmal supraventricular tachycardia) Risk of myocardial infarction or stroke 7.5% or greater in next 10 years Trigeminy Past Surgical History (Last Reviewed 11/17/23 @ 15:21 by FOREST Erickson) Anesthesia History of elbow surgery (~2013) History of eye surgery (~1955) Visit Care Team Role Provider Type Khadra Izquierdo MD Attending Provider Physician Family Provider Primary Care Provider Referring Provider Specialty: Family Practice Obstetrics Address: [address] [place] [address] Email: [email or web address] Physical Therapy Initial Evaluation PT-OP-A Visit Information Start: 04/18/24 16:11 Freq: Status: Active Protocol: Document 04/19/24 07:29 NM (Rec: 04/19/24 08:20 NM [id number]) Out-Patient Physical Therapy Visit Information Visit Information Visit Type Initial Evaluation Visit Start Time 07:32 Visit Stop Time 08:15 Visit Number 1 Evaluation Information Evaluation Date 04/19/24 PT-OP-B Current Condition Start: 04/18/24 16:11 Freq: Status: Active Protocol: Document 04/19/24 07:29 NM (Rec: 04/19/24 08:20 NM [id number]) Current Condition History of Current Condition Onset Date 1 month ago Current Complaints pain History of Current Condition Pt presents with L sided back/ hip pain, thinks that it's her sciatic nerve. She reports a hx of episodes 20 years ago. Denies back pain. Feels deep in her glute, dull ache in area. She reports 1 month ago, while standing up from rowing , she reports that she felt a sharp L sided pain from her buttocks down her lateral leg to her knee. She reports that sometimes she does not notice the pain at all, otherwise doesn't notice it. Minimal discomfort with sitting. However, increased pain with transition from sitting > standing, standing/moving, sleeping (primarily feels in knee), stairs, extension. No numbness or tingling. No changes to ability to control Bowel/bladder. Worse with trunk extension, better with knee extension. No changes with yoga, but does not help. Reports that in the last year, has been primarily more sedentary. Does rowing machine several times/week, currently not rowing outdoors due to weather. Prior Treatments and Tests No imaging Treatment Goals Patient/Caregiver Goals LTG to reduce worry about this kicking- start exercise regimen to help prevent Current Functional Impairments (Reported) Functional Limitations- Work/School vacuuming PT-OP-C Subjective Start: 04/18/24 16:11 Freq: Status: Active Protocol: Document 04/19/24 07:29 NM (Rec: 04/19/24 08:20 NM [id number]) OP-PT Subjective Patient Comments Patient Comments pt consents to participate in PT evaluation Patient Questionnaires Oswestry Low Back Index Oswestry Score 30/100 OP-PT Pain Assessment Location L hip Pain Location Details glute Intensity 6 Scale Used Numeric (0 - 10) Description Aching,Burning,Sharp,Stabbing Description- Other worse 7/10 at knee, 6/10 at thigh/lat leg Frequency Intermittent Radiating Location to lateral thigh>knee>to lateral mims Pain Aggravating Factors Position,ADL's,Activity, Standing,Walking,Stair Climbing Pain Alleviating Factors Heat,Sitting,Rest Other Pain Alleviating Factors aleve, prednisone PT-OP-F Manual Assessment Start: 04/18/24 16:11 Freq: Status: Active Protocol: Document 04/19/24 07:29 NM (Rec: 04/19/24 08:20 NM [id number]) Manual Assessments Soft Tissue Assessment Soft Tissue Mobility Assessment Increased restrictions and tenderness along glutes/ piriformis and ITB Joint Mobility Assessment Joint Mobility Assessment Decreased hip AROM and PROM into ER/IR especially with flexion, hip extension supplemented by lumbar extension Hypomobility of B hips, lumbar spine PT-OP-G Mobility & Gait Start: 04/18/24 16:11 Freq: Status: Active Protocol: Document 04/19/24 07:29 NM (Rec: 04/19/24 13:25 NM [id number]) OP Gait Assessment Gait Gait Assistance Required: Independent Distance (Feet) 150 Comments Gait Comments Mildly antalgic with L stance, decreased hip and trunk rotation, stiffness overall PT-OP-J Posture/Palpation/Skin Start: 04/18/24 16:11 Freq: Status: Active Protocol: Document 04/19/24 07:29 NM (Rec: 04/19/24 08:20 NM [id number]) Posture Evaluation Position Standing Head/C-Spine Posture Forward Head Shoulder Posture (L) Rounded,(R) Rounded Pelvis Posture Anteriorly Tilted Hip Posture (L) Externally Rotated,(R) Externally Rotated Palpation Assessment Location lumbar spine Palpation Details No tenderness along lumbar spine or SIJ or lumbar paraspinals, hypomobility with PA springing L hip Palpation Details Tenderness along L glutes and piriformis, especially in muscle belly but still tenderness along to greater trochanter Tenderness following ITB especially toward knee, but not tender at knee laterally or at joint line Tightness of hip flexors, TFL PT-OP-K Range of Motion Start: 04/18/24 16:11 Freq: Status: Active Protocol: Document 04/19/24 07:29 NM (Rec: 04/19/24 08:20 NM [id number]) Lumbar Spine Range of Motion Lumbar Spine Active Percentage Flexion 100 Extension 100 Rotation Left 10 Rotation Right 100 Lateral Flexion Left 75 Lateral Flexion Right 100 Comments L LF reproduce symptoms in posterior hip Hip Goniometric Range of Motion Hip Right Flexion w/Knee Flexed 110 Extension 8 Internal Rotation 25 External Rotation 30 Left Flexion w/Knee Flexed 120 Extension 10 Internal Rotation 30 External Rotation 25 PT-OP-L Special Tests Start: 04/18/24 16:11 Freq: Status: Active Protocol: Document 04/19/24 07:29 NM (Rec: 04/19/24 08:20 NM [id number]) Special Tests Lumbar Spine Special Tests Straight Leg Raise Test Results - SLR, + c/ adduction Slump Test Results - traction Test Results + alexander/quadrant Test Results + Hip Special Tests FADIR Test Results - CUAUHTEMOC Test Results - Knee Special Tests Vik's Test Test Results + PT-OP-M Strength Start: 04/18/24 16:11 Freq: Status: Active Protocol: Document 04/19/24 07:29 NM (Rec: 04/19/24 08:20 NM [id number]) Trunk Strength Trunk Manual Muscle Testing Flexion 4 Good Extension 4 Good Rotation Left 4 Good Rotation Right 4 Good Lateral Flexion Left 4 Good Lateral Flexion Right 4 Good Hip Strength Hip Manual Muscle Testing Right Flexion (L2) 4 Good Extension (S1) 4 Good Abduction 4 Good Adduction 4 Good External Rotation 4 Good Internal Rotation 4 Good Left Flexion (L2) 4- Good- Extension (S1) 4- Good- Abduction 4 Good Adduction 4 Good External Rotation 4- Good- Internal Rotation 4- Good- Comments no pain with resisted testing Knee Strength Knee Manual Muscle Testing Right Flexion (S2) 4 Good Extension (L3) 4 Good Left Flexion (S2) 4 Good Extension (L3) 4 Good Comments no pain with resisted testing PT-OP-Q Treatments Start: 04/18/24 16:11 Freq: Status: Active Protocol: Document 04/19/24 07:29 NM (Rec: 04/19/24 08:20 NM [id number]) Therapeutic Exercises Supine Exercises figure 4 stretch Supine Exercise Name performing at home Side bilateral Reps/Minutes 30 ea Comments no pain, only stretch bridge Supine Exercise Name single leg- HEP Side left Reps/Minutes 10 Comments cued form; no pain piriformis stretch Supine Exercise Name cross body adduction- HEP Side bilateral Reps/Minutes 60 ea Comments no pain; good stretch Sidelying Exercises hip abduction Sidelying Exercise Name with slight hip IR and ext Side bilateral Reps/Minutes 10 ea Comments mod cues for form; pain free PT-OP-T Assessment and Plan Start: 04/18/24 16:11 Freq: Status: Active Protocol: Document 04/19/24 07:29 NM (Rec: 04/19/24 08:20 NM [id number]) Physical Therapy Assessment Rehab Potential Rehabilitation Potential Good Evaluation Complexity Clinical Presentation at Evaluation Stable Impairments Impairments Activity Tolerance,Balance, Functional Activities, Functional Mobility,Gait, Integument,Pain,Posture,ROM, Sensation,Soft Tissue Mobility ,Strength,Transfers Other Concerns Age Related Concerns Pt did complete the health history form prior to leaving clinic so unable to complete above at this time Goals Three Impairment pain with stairs, ambulation Short Term Goal (STG) Pt will report that she can ambulate >1/2 mi with hip/knee pain <4/10 in order to demonstrate improved activity tolerance and symptom management STG Duration 06/02/24 Collar Trimmer Goal (LTG) Pt will report <4/10 hip/knee pain during at least 10 stairs (with or without rail use) in order to demonstrate improved functional mobility in household and community LTG Duration 06/16/24 Two Impairment NAM 30% impaired; poor tolerance with standing, transfers Collar Trimmer Goal (LTG) Pt will decrease Oswestry <15% impairment in order to demonstrate improved symptom management LTG Duration 06/02/24 One Impairment not performing HEP or strengthening program for symptom management Short Term Goal (STG) HEP will be initiated and pt will demo progressive IND with HEP for improved symptom management STG Duration 05/12/24 Alf Goal (LTG) Pt will be IND with HEP, performing at least 2-3x/wk in order to maximize progression with PT and transition to maintenance for symptom management upon discharge LTG Duration 06/16/24 Assessment Summary Assessment Pt is a 73 y.o. presenting with L sided low back-glute pain with radicular symptoms down posterior and lateral LLE to knee. Pt has tenderness along glutes/piriformis in addition to ITB pain and restrictions. Pt has good trunk ROM except with lateral flexion and no trunk strength limitations. However, pt does have restrictions with B hip mobility and B hip strength, especially glutes and rotators . Symptoms are reproduced with extension, lateral flexion, vertebral compression, and palpation; relieved with traction, knee extension, and soft tissue mobilization. PT educated pt on exam findings and plan of care. Pt would benefit from skilled PT for progressive flexibility and strengthening in order to improve symptom management and improved activity tolerance for ADLs/recreational activities and functional mobility. Physical Therapy Plan Frequency and Duration Frequency of Treatment 2x/Week Duration of treatment (weeks) 8 Plan of Care Start Date 04/19/24 Plan of Care End Date 06/16/24 Therapeutic Interventions Therapeutic Interventions Balance Training,Gait Training ,Home Exercise Program,Joint Mobilizations,Manual Therapy, Neuromuscular Re-education, Orthotic/Prosthetic Management ,Patient/Caregiver Education, Self-Care/Home Management, Sensory Integration,Soft Tissue Mobilization,Taping, Therapeutic Activities, Therapeutic Exercises, Vestibular Rehabilitation Modalities Cold Pack/Ice Massage,Electric Stimulation,Hot Packs, Ultrasound,Vasopneumatic Devices Other Therapeutic Interventions TrP treatment if appropriate Next Visit Focus/Plan Next Note Type Treatment Note Next Visit Plan review HEP Hip mobility, hip stretching, glute/quad strengthening, core bracing, breathwork Manual: glutes, piriformis, ITB, hip mobilizations, soft tissue mobilization
--- NOTE | 2024-04-21 10:44 | PT.OTN ---
Current Diagnoses Stiffness of right hip, not elsewhere classified (04/21/24) Stiffness of left hip, not elsewhere classified (04/21/24) Stiffness of other specified joint, not elsewhere classified (04/21/24) Sciatica, left side (04/21/24) Difficulty in walking, not elsewhere classified (04/21/24) Weakness (04/21/24) Physical Therapy Treatment Note PT-OP-A Visit Information Start: 04/18/24 16:11 Freq: Status: Active Protocol: Document 04/21/24 08:58 NM (Rec: 04/21/24 10:44 NM [id number]) Out-Patient Physical Therapy Visit Information Visit Information Visit Type Treatment Note Visit Start Time 09:02 Visit Stop Time 09:45 Visit Number 2 Evaluation Information Evaluation Date 04/19/24 PT-OP-B Current Condition Start: 04/18/24 16:11 Freq: Status: Active Protocol: Document 04/19/24 07:29 NM (Rec: 04/19/24 08:20 NM [id number]) Current Condition History of Current Condition Onset Date 1 month ago Current Complaints pain History of Current Condition Pt presents with L sided back/ hip pain, thinks that it's her sciatic nerve. She reports a hx of episodes 20 years ago. Denies back pain. Feels deep in her glute, dull ache in area. She reports 1 month ago, while standing up from rowing , she reports that she felt a sharp L sided pain from her buttocks down her lateral leg to her knee. She reports that sometimes she does not notice the pain at all, otherwise doesn't notice it. Minimal discomfort with sitting. However, increased pain with transition from sitting > standing, standing/moving, sleeping (primarily feels in knee), stairs, extension. No numbness or tingling. No changes to ability to control Bowel/bladder. Worse with trunk extension, better with knee extension. No changes with yoga, but does not help. Reports that in the last year, has been primarily more sedentary. Does rowing machine several times/week, currently not rowing outdoors due to weather. Prior Treatments and Tests No imaging Treatment Goals Patient/Caregiver Goals LTG to reduce worry about this kicking- start exercise regimen to help prevent Current Functional Impairments (Reported) Functional Limitations- Work/School vacuuming PT-OP-C Subjective Start: 04/18/24 16:11 Freq: Status: Active Protocol: Document 04/21/24 08:58 NM (Rec: 04/21/24 10:44 NM [id number]) OP-PT Subjective Patient Comments Patient Comments Pt reports that she felt good after last session but then felt bad in evening. She will be getting a new mattress. Was sitting on bed for several hours to watch a movie, sitting in a corner of her couch. [place] stiffness when waking up, reports soreness. PT-OP-F Manual Assessment Start: 04/18/24 16:11 Freq: Status: Active Protocol: Document 04/19/24 07:29 NM (Rec: 04/19/24 08:20 NM [id number]) Manual Assessments Soft Tissue Assessment Soft Tissue Mobility Assessment Increased restrictions and tenderness along glutes/ piriformis and ITB Joint Mobility Assessment Joint Mobility Assessment Decreased hip AROM and PROM into ER/IR especially with flexion, hip extension supplemented by lumbar extension Hypomobility of B hips, lumbar spine PT-OP-G Mobility & Gait Start: 04/18/24 16:11 Freq: Status: Active Protocol: Document 04/19/24 07:29 NM (Rec: 04/19/24 13:25 NM [id number]) OP Gait Assessment Gait Gait Assistance Required: Independent Distance (Feet) 150 Comments Gait Comments Mildly antalgic with L stance, decreased hip and trunk rotation, stiffness overall PT-OP-J Posture/Palpation/Skin Start: 04/18/24 16:11 Freq: Status: Active Protocol: Document 04/19/24 07:29 NM (Rec: 04/19/24 08:20 NM [id number]) Posture Evaluation Position Standing Head/C-Spine Posture Forward Head Shoulder Posture (L) Rounded,(R) Rounded Pelvis Posture Anteriorly Tilted Hip Posture (L) Externally Rotated,(R) Externally Rotated Palpation Assessment Location lumbar spine Palpation Details No tenderness along lumbar spine or SIJ or lumbar paraspinals, hypomobility with PA springing L hip Palpation Details Tenderness along L glutes and piriformis, especially in muscle belly but still tenderness along to greater trochanter Tenderness following ITB especially toward knee, but not tender at knee laterally or at joint line Tightness of hip flexors, TFL PT-OP-K Range of Motion Start: 04/18/24 16:11 Freq: Status: Active Protocol: Document 04/19/24 07:29 NM (Rec: 04/19/24 08:20 NM [id number]) Lumbar Spine Range of Motion Lumbar Spine Active Percentage Flexion 100 Extension 100 Rotation Left 10 Rotation Right 100 Lateral Flexion Left 75 Lateral Flexion Right 100 Comments L LF reproduce symptoms in posterior hip Hip Goniometric Range of Motion Hip Right Flexion w/Knee Flexed 110 Extension 8 Internal Rotation 25 External Rotation 30 Left Flexion w/Knee Flexed 120 Extension 10 Internal Rotation 30 External Rotation 25 PT-OP-L Special Tests Start: 04/18/24 16:11 Freq: Status: Active Protocol: Document 04/19/24 07:29 NM (Rec: 04/19/24 08:20 NM [id number]) Special Tests Lumbar Spine Special Tests Straight Leg Raise Test Results - SLR, + c/ adduction Slump Test Results - traction Test Results + alexander/quadrant Test Results + Hip Special Tests FADIR Test Results - CUAUHTEMOC Test Results - Knee Special Tests Vik's Test Test Results + PT-OP-M Strength Start: 04/18/24 16:11 Freq: Status: Active Protocol: Document 04/19/24 07:29 NM (Rec: 04/19/24 08:20 NM [id number]) Trunk Strength Trunk Manual Muscle Testing Flexion 4 Good Extension 4 Good Rotation Left 4 Good Rotation Right 4 Good Lateral Flexion Left 4 Good Lateral Flexion Right 4 Good Hip Strength Hip Manual Muscle Testing Right Flexion (L2) 4 Good Extension (S1) 4 Good Abduction 4 Good Adduction 4 Good External Rotation 4 Good Internal Rotation 4 Good Left Flexion (L2) 4- Good- Extension (S1) 4- Good- Abduction 4 Good Adduction 4 Good External Rotation 4- Good- Internal Rotation 4- Good- Comments no pain with resisted testing Knee Strength Knee Manual Muscle Testing Right Flexion (S2) 4 Good Extension (L3) 4 Good Left Flexion (S2) 4 Good Extension (L3) 4 Good Comments no pain with resisted testing PT-OP-Q Treatments Start: 04/18/24 16:11 Freq: Status: Active Protocol: Document 04/21/24 08:58 NM (Rec: 04/21/24 10:44 NM [id number]) Therapeutic Exercises Supine Exercises SLR Supine Exercise Name 1. neutral, 2. c/ hip IR Side left Reps/Minutes 8 ea position, ea leg Comments cued form figure 4 stretch Supine Exercise Name performing at home already, gentle c/ LS rotation Side bilateral Reps/Minutes 60 ea Comments no pain, only stretch bridge Supine Exercise Name edu to stop SL bridge at home Side bilateral Resistance level 3 Reps/Minutes 10 Comments needs max cues for single leg bridge so d/c piriformis stretch Supine Exercise Name cross body adduction- HEP Side bilateral Reps/Minutes 60 ea Comments no pain; good stretch Sidelying Exercises TFL stretch Sidelying Exercise Name leg off bed Side bilateral Reps/Minutes 30 Comments btwn sets of hip abduction quad stretch Sidelying Exercise Name HEP Side bilateral Reps/Minutes 2x30 ea Comments no strap assist hip abduction Sidelying Exercise Name with slight hip IR and ext Side bilateral Reps/Minutes 2x10 ea Comments improved form; good glute activation; pain free Manual Therapy Treatment Consent Patient gave verbal consent for manual Yes treatment Soft Tissue Mobilization LLE Body Location quad, HS, glutes, piriformis, iliopsoas, ITB Mobilization Type Rolling,Strumming,Sustained Pressure Intensity/Depth Moderate Comments R sidelying c/ pillows between legs. Tenderness at glutes ( muscle belly, superiorly), quad, ITB. Most tenderness at lateral quad, glutes, TFL. Trigger points present for all lumbar spine Body Location paraspinals, QL Mobilization Type Rolling,Strumming Intensity/Depth Moderate Comments R sidelying, pillows between legs. 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 PT-OP-T Assessment and Plan Start: 04/18/24 16:11 Freq: Status: Active Protocol: Document 04/21/24 08:58 NM (Rec: 04/21/24 10:44 NM [id number]) Physical Therapy Assessment Goals Three Impairment pain with stairs, ambulation Short Term Goal (STG) Pt will report that she can ambulate >1/2 mi with hip/knee pain <4/10 in order to demonstrate improved activity tolerance and symptom management STG Duration 06/02/24 Senior Care Goal (LTG) Pt will report <4/10 hip/knee pain during at least 10 stairs (with or without rail use) in order to demonstrate improved functional mobility in household and community LTG Duration 06/16/24 Two Impairment NAM 30% impaired; poor tolerance with standing, transfers Orientor Goal (LTG) Pt will decrease Oswestry <15% impairment in order to demonstrate improved symptom management LTG Duration 06/02/24 One Impairment not performing HEP or strengthening program for symptom management Short Term Goal (STG) HEP will be initiated and pt will demo progressive IND with HEP for improved symptom management 04/21/24: initiated at evaluation, added to during session; compliant with HEP STG Duration 05/12/24 Senior Care Goal (LTG) Pt will be IND with HEP, performing at least 2-3x/wk in order to maximize progression with PT and transition to maintenance for symptom management upon discharge LTG Duration 06/16/24 Assessment Summary Assessment Pt tolerated treatment well, reports feeling more flexible and less stiff at end of session. Discontinued single leg bridge for now due to max cueing needed for form; regressed to banded bridges with posterior pelvic tilt for glute activation. Initiated quad stretch in sidelying and TFL stretch to promote improved length and decrease ITB irritation. Good response to light lumbar rotation with hip stretching. Better form with sidelying hip abduction. Increased restrictions at ITB and quad, TFL and glute during manual treatment; reduced with soft tissue mobilization. Education on sleeping position and activity modification for pain management. Pt would continue to benefit from skilled PT for progressive flexibility and strengthening to improve symptom management. Physical Therapy Plan Frequency and Duration Frequency of Treatment 2x/Week Duration of treatment (weeks) 8 Plan of Care Start Date 04/19/24 Plan of Care End Date 06/16/24 Therapeutic Interventions Therapeutic Interventions Balance Training,Gait Training ,Home Exercise Program,Joint Mobilizations,Manual Therapy, Neuromuscular Re-education, Orthotic/Prosthetic Management ,Patient/Caregiver Education, Self-Care/Home Management, Sensory Integration,Soft Tissue Mobilization,Taping, Therapeutic Activities, Therapeutic Exercises, Vestibular Rehabilitation Modalities Cold Pack/Ice Massage,Electric Stimulation,Hot Packs, Ultrasound,Vasopneumatic Devices Other Therapeutic Interventions TrP treatment if appropriate Next Visit Focus/Plan Next Note Type Treatment Note Next Visit Plan review HEP Hip mobility, hip stretching, glute/quad strengthening, core bracing, breathwork Manual: glutes, piriformis, ITB, hip mobilizations, soft tissue mobilization
--- NOTE | 2024-04-25 15:49 | PT.OTN ---
Current Diagnoses Stiffness of right hip, not elsewhere classified (04/25/24) Stiffness of left hip, not elsewhere classified (04/25/24) Stiffness of other specified joint, not elsewhere classified (04/25/24) Sciatica, left side (04/25/24) Difficulty in walking, not elsewhere classified (04/25/24) Weakness (04/25/24) Physical Therapy Treatment Note PT-OP-A Visit Information Start: 04/18/24 16:11 Freq: Status: Active Protocol: Document 04/25/24 07:28 NM (Rec: 04/25/24 08:16 NM [id number]) Out-Patient Physical Therapy Visit Information Visit Information Visit Type Treatment Note Visit Start Time 07:30 Visit Stop Time 08:15 Visit Number 3 Evaluation Information Evaluation Date 04/19/24 PT-OP-B Current Condition Start: 04/18/24 16:11 Freq: Status: Active Protocol: Document 04/19/24 07:29 NM (Rec: 04/19/24 08:20 NM [id number]) Current Condition History of Current Condition Onset Date 1 month ago Current Complaints pain History of Current Condition Pt presents with L sided back/ hip pain, thinks that it's her sciatic nerve. She reports a hx of episodes 20 years ago. Denies back pain. Feels deep in her glute, dull ache in area. She reports 1 month ago, while standing up from rowing , she reports that she felt a sharp L sided pain from her buttocks down her lateral leg to her knee. She reports that sometimes she does not notice the pain at all, otherwise doesn't notice it. Minimal discomfort with sitting. However, increased pain with transition from sitting > standing, standing/moving, sleeping (primarily feels in knee), stairs, extension. No numbness or tingling. No changes to ability to control Bowel/bladder. Worse with trunk extension, better with knee extension. No changes with yoga, but does not help. Reports that in the last year, has been primarily more sedentary. Does rowing machine several times/week, currently not rowing outdoors due to weather. Prior Treatments and Tests No imaging Treatment Goals Patient/Caregiver Goals LTG to reduce worry about this kicking- start exercise regimen to help prevent Current Functional Impairments (Reported) Functional Limitations- Work/School vacuuming PT-OP-C Subjective Start: 04/18/24 16:11 Freq: Status: Active Protocol: Document 04/25/24 07:28 NM (Rec: 04/25/24 08:16 NM [id number]) OP-PT Subjective Patient Comments Patient Comments Pt reports that felt great after last session, reports Wednesday had seixed up muscles, but better Wednesday. However, unable to sleep Wednesday night. Reports trying to move a little bit more instead of sitting. Feels at lateral hip, to knee. Pt reports that exercises going well. PT-OP-F Manual Assessment Start: 04/18/24 16:11 Freq: Status: Active Protocol: Document 04/19/24 07:29 NM (Rec: 04/19/24 08:20 NM [id number]) Manual Assessments Soft Tissue Assessment Soft Tissue Mobility Assessment Increased restrictions and tenderness along glutes/ piriformis and ITB Joint Mobility Assessment Joint Mobility Assessment Decreased hip AROM and PROM into ER/IR especially with flexion, hip extension supplemented by lumbar extension Hypomobility of B hips, lumbar spine PT-OP-G Mobility & Gait Start: 04/18/24 16:11 Freq: Status: Active Protocol: Document 04/19/24 07:29 NM (Rec: 04/19/24 13:25 NM [id number]) OP Gait Assessment Gait Gait Assistance Required: Independent Distance (Feet) 150 Comments Gait Comments Mildly antalgic with L stance, decreased hip and trunk rotation, stiffness overall PT-OP-J Posture/Palpation/Skin Start: 04/18/24 16:11 Freq: Status: Active Protocol: Document 04/19/24 07:29 NM (Rec: 04/19/24 08:20 NM [id number]) Posture Evaluation Position Standing Head/C-Spine Posture Forward Head Shoulder Posture (L) Rounded,(R) Rounded Pelvis Posture Anteriorly Tilted Hip Posture (L) Externally Rotated,(R) Externally Rotated Palpation Assessment Location lumbar spine Palpation Details No tenderness along lumbar spine or SIJ or lumbar paraspinals, hypomobility with PA springing L hip Palpation Details Tenderness along L glutes and piriformis, especially in muscle belly but still tenderness along to greater trochanter Tenderness following ITB especially toward knee, but not tender at knee laterally or at joint line Tightness of hip flexors, TFL PT-OP-K Range of Motion Start: 04/18/24 16:11 Freq: Status: Active Protocol: Document 02/12/25 07:29 NM (Rec: 04/19/24 08:20 NM [id number]) Lumbar Spine Range of Motion Lumbar Spine Active Percentage Flexion 100 Extension 100 Rotation Left 10 Rotation Right 100 Lateral Flexion Left 75 Lateral Flexion Right 100 Comments L LF reproduce symptoms in posterior hip Hip Goniometric Range of Motion Hip Right Flexion w/Knee Flexed 110 Extension 8 Internal Rotation 25 External Rotation 30 Left Flexion w/Knee Flexed 120 Extension 10 Internal Rotation 30 External Rotation 25 PT-OP-L Special Tests Start: 04/18/24 16:11 Freq: Status: Active Protocol: Document 04/19/24 07:29 NM (Rec: 04/19/24 08:20 NM [id number]) Special Tests Lumbar Spine Special Tests Straight Leg Raise Test Results - SLR, + c/ adduction Slump Test Results - traction Test Results + alexander/quadrant Test Results + Hip Special Tests FADIR Test Results - CUAUHTEMOC Test Results - Knee Special Tests Vik's Test Test Results + PT-OP-M Strength Start: 04/18/24 16:11 Freq: Status: Active Protocol: Document 04/19/24 07:29 NM (Rec: 04/19/24 08:20 NM [id number]) Trunk Strength Trunk Manual Muscle Testing Flexion 4 Good Extension 4 Good Rotation Left 4 Good Rotation Right 4 Good Lateral Flexion Left 4 Good Lateral Flexion Right 4 Good Hip Strength Hip Manual Muscle Testing Right Flexion (L2) 4 Good Extension (S1) 4 Good Abduction 4 Good Adduction 4 Good External Rotation 4 Good Internal Rotation 4 Good Left Flexion (L2) 4- Good- Extension (S1) 4- Good- Abduction 4 Good Adduction 4 Good External Rotation 4- Good- Internal Rotation 4- Good- Comments no pain with resisted testing Knee Strength Knee Manual Muscle Testing Right Flexion (S2) 4 Good Extension (L3) 4 Good Left Flexion (S2) 4 Good Extension (L3) 4 Good Comments no pain with resisted testing PT-OP-Q Treatments Start: 04/18/24 16:11 Freq: Status: Active Protocol: Document 04/25/24 07:28 NM (Rec: 04/25/24 08:16 NM [id number]) Therapeutic Exercises Supine Exercises neural glides Supine Exercise Name 1. sciatic (knee/ankle flex/ ext), 2. LFCN (c/ hip add) Side left Reps/Minutes 10 ea Comments mod cues form; no neural symptoms until last few- feels in mims SLR Supine Exercise Name hip IR Side bilateral Reps/Minutes 2x10 Comments cued for set up Sitting Exercises sit to stand Sitting Exercise Name progressed to squat Side bilateral Resistance AROM > level 3 band at thighs Equipment Used to chair Reps/Minutes 10 Standing Exercises hip extension Standing Exercise Name HEP Side bilateral Resistance level 1 band at shins Equipment Used B hand support for balnace Reps/Minutes 2x10 ea Comments cued neutral foot/hip, core bracing hip abduction Standing Exercise Name HEP Side bilateral Resistance AROM > level 1 band at shins Equipment Used B hand support for balance Reps/Minutes 10 ea AROM, 10 c/ band Comments cued posture, core brace, neutral foot/hip Manual Therapy Treatment Consent Patient gave verbal consent for manual Yes treatment Soft Tissue Mobilization LLE Body Location quad, HS, glutes, piriformis, iliopsoas, ITB Mobilization Type Rolling,Strumming,Sustained Pressure Intensity/Depth Moderate Comments Prone, R sidelying c/ pillows between legs. Tenderness at glutes (muscle belly, superiorly), quad, ITB. MWM prone hip ER/IR c/ trigger point at piriformis MWM sidelying hip flex/ext c/ trigger point at glutes lumbar spine Body Location paraspinals, QL Mobilization Type Rolling,Strumming Intensity/Depth Moderate Body Position Prone PT-OP-T Assessment and Plan Start: 04/18/24 16:11 Freq: Status: Active Protocol: Document 04/25/24 07:28 NM (Rec: 04/25/24 08:16 NM [id number]) Physical Therapy Assessment Goals Three Impairment pain with stairs, ambulation Short Term Goal (STG) Pt will report that she can ambulate >1/2 mi with hip/knee pain <4/10 in order to demonstrate improved activity tolerance and symptom management STG Duration 06/02/24 Washing Machine Assembler Goal (LTG) Pt will report <4/10 hip/knee pain during at least 10 stairs (with or without rail use) in order to demonstrate improved functional mobility in household and community LTG Duration 06/16/24 Two Impairment NAM 30% impaired; poor tolerance with standing, transfers Washing Machine Assembler Goal (LTG) Pt will decrease Oswestry <15% impairment in order to demonstrate improved symptom management LTG Duration 06/02/24 One Impairment not performing HEP or strengthening program for symptom management Short Term Goal (STG) HEP will be initiated and pt will demo progressive IND with HEP for improved symptom management 04/21/24: initiated at evaluation, added to during session; compliant with HEP STG Duration 05/12/24 Prison Goal (LTG) Pt will be IND with HEP, performing at least 2-3x/wk in order to maximize progression with PT and transition to maintenance for symptom management upon discharge LTG Duration 06/16/24 Assessment Summary Assessment Pt has trigger points at glute and pirformis today, good response to mobilization with movement; has reduction in soft tissue symptoms. Less tenderness over TFL, but tenderness over glutes and lateral quad/ITB. Progressed to standing glute strengthening to improve postural control, alignment, and offload tendency to stabilize with ITB. Cueing needed for correct execution and carryover for HEP. Pt would continue to benefit from skilled PT for progressive mobility and strengthening to decrease pain and improve functional mobility. Physical Therapy Plan Frequency and Duration Frequency of Treatment 2x/Week Duration of treatment (weeks) 8 Plan of Care Start Date 04/19/24 Plan of Care End Date 06/16/24 Therapeutic Interventions Therapeutic Interventions Balance Training,Gait Training ,Home Exercise Program,Joint Mobilizations,Manual Therapy, Neuromuscular Re-education, Orthotic/Prosthetic Management ,Patient/Caregiver Education, Self-Care/Home Management, Sensory Integration,Soft Tissue Mobilization,Taping, Therapeutic Activities, Therapeutic Exercises, Vestibular Rehabilitation Modalities Cold Pack/Ice Massage,Electric Stimulation,Hot Packs, Ultrasound,Vasopneumatic Devices Other Therapeutic Interventions TrP treatment if appropriate Next Visit Focus/Plan Next Note Type Treatment Note Next Visit Plan review HEP. progress to slider squat, side steps, trial step up, B squat vs leg press vs wall squat, etc Hip mobility, hip stretching, glute/quad strengthening, core bracing, breathwork Manual: glutes, piriformis, ITB, hip mobilizations, soft tissue mobilization; hip mobilizations?
--- NOTE | 2024-04-28 10:28 | PT.OTN ---
Current Diagnoses Stiffness of right hip, not elsewhere classified (04/28/24) Stiffness of left hip, not elsewhere classified (04/28/24) Stiffness of other specified joint, not elsewhere classified (04/28/24) Sciatica, left side (04/28/24) Difficulty in walking, not elsewhere classified (04/28/24) Weakness (04/28/24) Physical Therapy Treatment Note PT-OP-A Visit Information Start: 04/18/24 16:11 Freq: Status: Active Protocol: Document 04/28/24 08:11 NM (Rec: 04/28/24 09:02 NM [id number]) Out-Patient Physical Therapy Visit Information Visit Information Visit Type Treatment Note Visit Start Time 08:17 Visit Stop Time 08:59 Visit Number 4 Evaluation Information Evaluation Date 04/19/24 PT-OP-B Current Condition Start: 04/18/24 16:11 Freq: Status: Active Protocol: Document 04/19/24 07:29 NM (Rec: 04/19/24 08:20 NM [id number]) Current Condition History of Current Condition Onset Date 1 month ago Current Complaints pain History of Current Condition Pt presents with L sided back/ hip pain, thinks that it's her sciatic nerve. She reports a hx of episodes 20 years ago. Denies back pain. Feels deep in her glute, dull ache in area. She reports 1 month ago, while standing up from rowing , she reports that she felt a sharp L sided pain from her buttocks down her lateral leg to her knee. She reports that sometimes she does not notice the pain at all, otherwise doesn't notice it. Minimal discomfort with sitting. However, increased pain with transition from sitting > standing, standing/moving, sleeping (primarily feels in knee), stairs, extension. No numbness or tingling. No changes to ability to control Bowel/bladder. Worse with trunk extension, better with knee extension. No changes with yoga, but does not help. Reports that in the last year, has been primarily more sedentary. Does rowing machine several times/week, currently not rowing outdoors due to weather. Prior Treatments and Tests No imaging Treatment Goals Patient/Caregiver Goals LTG to reduce worry about this kicking- start exercise regimen to help prevent Current Functional Impairments (Reported) Functional Limitations- Work/School vacuuming PT-OP-C Subjective Start: 04/18/24 16:11 Freq: Status: Active Protocol: Document 04/28/24 08:11 NM (Rec: 04/28/24 09:02 NM [id number]) OP-PT Subjective Patient Comments Patient Comments Pt reports that she feels really good. Having less pain in glute, no shooting pain down the leg. She has been compliant with HEP, feels like helping. Reports that having lateral knee pain near patella . Pt did rowing yesterday, no pain following. PT-OP-F Manual Assessment Start: 04/18/24 16:11 Freq: Status: Active Protocol: Document 04/19/24 07:29 NM (Rec: 04/19/24 08:20 NM [id number]) Manual Assessments Soft Tissue Assessment Soft Tissue Mobility Assessment Increased restrictions and tenderness along glutes/ piriformis and ITB Joint Mobility Assessment Joint Mobility Assessment Decreased hip AROM and PROM into ER/IR especially with flexion, hip extension supplemented by lumbar extension Hypomobility of B hips, lumbar spine PT-OP-G Mobility & Gait Start: 04/18/24 16:11 Freq: Status: Active Protocol: Document 04/19/24 07:29 NM (Rec: 04/19/24 13:25 NM [id number]) OP Gait Assessment Gait Gait Assistance Required: Independent Distance (Feet) 150 Comments Gait Comments Mildly antalgic with L stance, decreased hip and trunk rotation, stiffness overall PT-OP-J Posture/Palpation/Skin Start: 04/18/24 16:11 Freq: Status: Active Protocol: Document 04/19/24 07:29 NM (Rec: 04/19/24 08:20 NM [id number]) Posture Evaluation Position Standing Head/C-Spine Posture Forward Head Shoulder Posture (L) Rounded,(R) Rounded Pelvis Posture Anteriorly Tilted Hip Posture (L) Externally Rotated,(R) Externally Rotated Palpation Assessment Location lumbar spine Palpation Details No tenderness along lumbar spine or SIJ or lumbar paraspinals, hypomobility with PA springing L hip Palpation Details Tenderness along L glutes and piriformis, especially in muscle belly but still tenderness along to greater trochanter Tenderness following ITB especially toward knee, but not tender at knee laterally or at joint line Tightness of hip flexors, TFL PT-OP-K Range of Motion Start: 04/18/24 16:11 Freq: Status: Active Protocol: Document 04/19/24 07:29 NM (Rec: 04/19/24 08:20 NM [id number]) Lumbar Spine Range of Motion Lumbar Spine Active Percentage Flexion 100 Extension 100 Rotation Left 10 Rotation Right 100 Lateral Flexion Left 75 Lateral Flexion Right 100 Comments L LF reproduce symptoms in posterior hip Hip Goniometric Range of Motion Hip Right Flexion w/Knee Flexed 110 Extension 8 Internal Rotation 25 External Rotation 30 Left Flexion w/Knee Flexed 120 Extension 10 Internal Rotation 30 External Rotation 25 PT-OP-L Special Tests Start: 04/18/24 16:11 Freq: Status: Active Protocol: Document 04/19/24 07:29 NM (Rec: 04/19/24 08:20 NM [id number]) Special Tests Lumbar Spine Special Tests Straight Leg Raise Test Results - SLR, + c/ adduction Slump Test Results - traction Test Results + alexander/quadrant Test Results + Hip Special Tests FADIR Test Results - CUAUHTEMOC Test Results - Knee Special Tests Vik's Test Test Results + PT-OP-M Strength Start: 04/18/24 16:11 Freq: Status: Active Protocol: Document 04/19/24 07:29 NM (Rec: 04/19/24 08:20 NM [id number]) Trunk Strength Trunk Manual Muscle Testing Flexion 4 Good Extension 4 Good Rotation Left 4 Good Rotation Right 4 Good Lateral Flexion Left 4 Good Lateral Flexion Right 4 Good Hip Strength Hip Manual Muscle Testing Right Flexion (L2) 4 Good Extension (S1) 4 Good Abduction 4 Good Adduction 4 Good External Rotation 4 Good Internal Rotation 4 Good Left Flexion (L2) 4- Good- Extension (S1) 4- Good- Abduction 4 Good Adduction 4 Good External Rotation 4- Good- Internal Rotation 4- Good- Comments no pain with resisted testing Knee Strength Knee Manual Muscle Testing Right Flexion (S2) 4 Good Extension (L3) 4 Good Left Flexion (S2) 4 Good Extension (L3) 4 Good Comments no pain with resisted testing PT-OP-Q Treatments Start: 04/18/24 16:11 Freq: Status: Active Protocol: Document 04/28/24 08:11 NM (Rec: 04/28/24 09:02 NM [id number]) Therapeutic Exercises Sitting Exercises sit to stand Sitting Exercise Name squat- HEP review Side bilateral Resistance level 3 band at thighs Equipment Used to chair Reps/Minutes 15 Comments cued hip hinge, less trunk flexion Standing Exercises TKE Side bilateral Resistance level 3 band Equipment Used @ stairs, hand support for balance Reps/Minutes 10 ea x 3 hold Comments cued for lateral stepping Side bilateral Resistance level 3 band at thighs Equipment Used squat position Reps/Minutes 5 sets x 5 ft hip extension Standing Exercise Name HEP review Side bilateral Resistance level 1 band at shins > ankles Equipment Used B hand support for balnace Reps/Minutes 10 c/ band Comments cued neutral foot/hip, core bracing hip abduction Standing Exercise Name HEP review Side bilateral Resistance level 1 band at shins > ankles Equipment Used B hand support for balance Reps/Minutes 10 c/ band Comments cued posture, core brace, neutral foot/hip Other Exercises self soft tissue mobilization Other Exercise Name OI, piriformis Side bilateral Equipment Used raquetball Reps/Minutes 2 min ea Comments MWM Manual Therapy Treatment Consent Patient gave verbal consent for manual Yes treatment Soft Tissue Mobilization LLE Body Location quad, HS, glutes, piriformis, iliopsoas, ITB Mobilization Type Rolling,Strumming,Sustained Pressure Intensity/Depth Moderate Comments Prone, R sidelying c/ pillows between legs. Tenderness at glutes (muscle belly, superiorly), quad, ITB. MWM prone hip ER/IR c/ trigger point at piriformis lumbar spine Body Location paraspinals, QL Mobilization Type Rolling,Strumming Intensity/Depth Moderate Body Position Prone Manual Techniques PNF Type alternating isometrics Body Location L hip IR>ER>IR Body Position Prone Reps/Duration 5 reps x3 ea position Comments gradually increasing ROM PT-OP-T Assessment and Plan Start: 04/18/24 16:11 Freq: Status: Active Protocol: Document 04/28/24 08:11 NM (Rec: 04/28/24 09:02 NM [id number]) Physical Therapy Assessment Goals Three Impairment pain with stairs, ambulation Short Term Goal (STG) Pt will report that she can ambulate >1/2 mi with hip/knee pain <4/10 in order to demonstrate improved activity tolerance and symptom management STG Duration 06/02/24 Jail Goal (LTG) Pt will report <4/10 hip/knee pain during at least 10 stairs (with or without rail use) in order to demonstrate improved functional mobility in household and community LTG Duration 06/16/24 Two Impairment NAM 30% impaired; poor tolerance with standing, transfers Student Liaison Officer Goal (LTG) Pt will decrease Oswestry <15% impairment in order to demonstrate improved symptom management LTG Duration 06/02/24 One Impairment not performing HEP or strengthening program for symptom management Short Term Goal (STG) HEP will be initiated and pt will demo progressive IND with HEP for improved symptom management 04/21/24: initiated at evaluation, added to during session; compliant with HEP STG Duration 05/12/24 Student Liaison Officer Goal (LTG) Pt will be IND with HEP, performing at least 2-3x/wk in order to maximize progression with PT and transition to maintenance for symptom management upon discharge LTG Duration 06/16/24 Assessment Summary Assessment Pt tolerated session well. Fewer trigger points at glute/ piriformis today. Educated on self mobilization with racquetball for carryover at home. Progressed glute strengthening distally for longer lever arm. Added TKE for quad activation; will progress in future sessions with hip strengthening component as well. Cueing needed for correct execution; quad quickly fatigues. Trialed lateral stepping but needs too many cues for correct carryover at home. Physical Therapy Plan Frequency and Duration Frequency of Treatment 2x/Week Duration of treatment (weeks) 8 Plan of Care Start Date 04/19/24 Plan of Care End Date 06/16/24 Therapeutic Interventions Therapeutic Interventions Balance Training,Gait Training ,Home Exercise Program,Joint Mobilizations,Manual Therapy, Neuromuscular Re-education, Orthotic/Prosthetic Management ,Patient/Caregiver Education, Self-Care/Home Management, Sensory Integration,Soft Tissue Mobilization,Taping, Therapeutic Activities, Therapeutic Exercises, Vestibular Rehabilitation Modalities Cold Pack/Ice Massage,Electric Stimulation,Hot Packs, Ultrasound,Vasopneumatic Devices Other Therapeutic Interventions TrP treatment if appropriate Next Visit Focus/Plan Next Note Type Treatment Note Next Visit Plan review HEP. stairs. progress to slider squat, side steps, trial step up fwd and lat, B squat vs leg press vs wall squat, etc. trial tape for knee, possible patellar mechanics Hip mobility, hip stretching, glute/quad strengthening, core bracing, breathwork Manual: glutes, piriformis, ITB, hip mobilizations, soft tissue mobilization; hip mobilizations?
--- NOTE | 2024-05-03 08:58 | PT.OTN ---
Current Diagnoses Stiffness of right hip, not elsewhere classified (05/03/24) Stiffness of left hip, not elsewhere classified (05/03/24) Stiffness of other specified joint, not elsewhere classified (05/03/24) Sciatica, left side (05/03/24) Difficulty in walking, not elsewhere classified (05/03/24) Weakness (05/03/24) Physical Therapy Treatment Note PT-OP-A Visit Information Start: 04/18/24 16:11 Freq: Status: Active Protocol: Document 05/03/24 08:13 NM (Rec: 05/03/24 08:58 NM [id number]) Out-Patient Physical Therapy Visit Information Visit Information Visit Type Treatment Note Visit Start Time 08:16 Visit Stop Time 08:56 Visit Number 5 Evaluation Information Evaluation Date 04/19/24 PT-OP-B Current Condition Start: 04/18/24 16:11 Freq: Status: Active Protocol: Document 04/19/24 07:29 NM (Rec: 04/19/24 08:20 NM [id number]) Current Condition History of Current Condition Onset Date 1 month ago Current Complaints pain History of Current Condition Pt presents with L sided back/ hip pain, thinks that it's her sciatic nerve. She reports a hx of episodes 20 years ago. Denies back pain. Feels deep in her glute, dull ache in area. She reports 1 month ago, while standing up from rowing , she reports that she felt a sharp L sided pain from her buttocks down her lateral leg to her knee. She reports that sometimes she does not notice the pain at all, otherwise doesn't notice it. Minimal discomfort with sitting. However, increased pain with transition from sitting > standing, standing/moving, sleeping (primarily feels in knee), stairs, extension. No numbness or tingling. No changes to ability to control Bowel/bladder. Worse with trunk extension, better with knee extension. No changes with yoga, but does not help. Reports that in the last year, has been primarily more sedentary. Does rowing machine several times/week, currently not rowing outdoors due to weather. Prior Treatments and Tests No imaging Treatment Goals Patient/Caregiver Goals LTG to reduce worry about this kicking- start exercise regimen to help prevent Current Functional Impairments (Reported) Functional Limitations- Work/School vacuuming PT-OP-C Subjective Start: 04/18/24 16:11 Freq: Status: Active Protocol: Document 05/03/24 08:13 NM (Rec: 05/03/24 08:58 NM [id number]) OP-PT Subjective Patient Comments Patient Comments Pt reports that she is continuing to do well. Reports that she has not have the buttock pain. Does not have any lateral knee pain except for at end of exercises, but reports that her pain does not last long. PT-OP-F Manual Assessment Start: 04/18/24 16:11 Freq: Status: Active Protocol: Document 04/19/24 07:29 NM (Rec: 04/19/24 08:20 NM [id number]) Manual Assessments Soft Tissue Assessment Soft Tissue Mobility Assessment Increased restrictions and tenderness along glutes/ piriformis and ITB Joint Mobility Assessment Joint Mobility Assessment Decreased hip AROM and PROM into ER/IR especially with flexion, hip extension supplemented by lumbar extension Hypomobility of B hips, lumbar spine PT-OP-G Mobility & Gait Start: 04/18/24 16:11 Freq: Status: Active Protocol: Document 04/19/24 07:29 NM (Rec: 04/19/24 13:25 NM [id number]) OP Gait Assessment Gait Gait Assistance Required: Independent Distance (Feet) 150 Comments Gait Comments Mildly antalgic with L stance, decreased hip and trunk rotation, stiffness overall PT-OP-J Posture/Palpation/Skin Start: 04/18/24 16:11 Freq: Status: Active Protocol: Document 04/19/24 07:29 NM (Rec: 04/19/24 08:20 NM [id number]) Posture Evaluation Position Standing Head/C-Spine Posture Forward Head Shoulder Posture (L) Rounded,(R) Rounded Pelvis Posture Anteriorly Tilted Hip Posture (L) Externally Rotated,(R) Externally Rotated Palpation Assessment Location lumbar spine Palpation Details No tenderness along lumbar spine or SIJ or lumbar paraspinals, hypomobility with PA springing L hip Palpation Details Tenderness along L glutes and piriformis, especially in muscle belly but still tenderness along to greater trochanter Tenderness following ITB especially toward knee, but not tender at knee laterally or at joint line Tightness of hip flexors, TFL PT-OP-K Range of Motion Start: 04/18/24 16:11 Freq: Status: Active Protocol: Document 04/19/24 07:29 NM (Rec: 04/19/24 08:20 NM [id number]) Lumbar Spine Range of Motion Lumbar Spine Active Percentage Flexion 100 Extension 100 Rotation Left 10 Rotation Right 100 Lateral Flexion Left 75 Lateral Flexion Right 100 Comments L LF reproduce symptoms in posterior hip Hip Goniometric Range of Motion Hip Right Flexion w/Knee Flexed 110 Extension 8 Internal Rotation 25 External Rotation 30 Left Flexion w/Knee Flexed 120 Extension 10 Internal Rotation 30 External Rotation 25 PT-OP-L Special Tests Start: 04/18/24 16:11 Freq: Status: Active Protocol: Document 04/19/24 07:29 NM (Rec: 04/19/24 08:20 NM [id number]) Special Tests Lumbar Spine Special Tests Straight Leg Raise Test Results - SLR, + c/ adduction Slump Test Results - traction Test Results + alexander/quadrant Test Results + Hip Special Tests FADIR Test Results - CUAUHTEMOC Test Results - Knee Special Tests Vik's Test Test Results + PT-OP-M Strength Start: 04/18/24 16:11 Freq: Status: Active Protocol: Document 04/19/24 07:29 NM (Rec: 04/19/24 08:20 NM [id number]) Trunk Strength Trunk Manual Muscle Testing Flexion 4 Good Extension 4 Good Rotation Left 4 Good Rotation Right 4 Good Lateral Flexion Left 4 Good Lateral Flexion Right 4 Good Hip Strength Hip Manual Muscle Testing Right Flexion (L2) 4 Good Extension (S1) 4 Good Abduction 4 Good Adduction 4 Good External Rotation 4 Good Internal Rotation 4 Good Left Flexion (L2) 4- Good- Extension (S1) 4- Good- Abduction 4 Good Adduction 4 Good External Rotation 4- Good- Internal Rotation 4- Good- Comments no pain with resisted testing Knee Strength Knee Manual Muscle Testing Right Flexion (S2) 4 Good Extension (L3) 4 Good Left Flexion (S2) 4 Good Extension (L3) 4 Good Comments no pain with resisted testing PT-OP-Q Treatments Start: 04/18/24 16:11 Freq: Status: Active Protocol: Document 05/03/24 08:13 NM (Rec: 05/03/24 08:58 NM [id number]) Gym Equipment Shuttle Recovery B squat Details cued full knee ext; alignment maintained; no pain, good control Resistance 50# (2 navy) > 62# Reps/Time 15 ea resistance Therapeutic Exercises Standing Exercises step up Standing Exercise Name 1. 4 fwd, 2. 6 fwd, 3. lateral step up Side bilateral Equipment Used no UE support Reps/Minutes 10 ea Comments alignment good, no pain; minimal cues retro stepping Standing Exercise Name HEP Side bilateral Resistance level 3 band at shins Equipment Used squat position, hands hovering over //bars Reps/Minutes 10 ft x 2 sets Comments correct activation, good feedback TKE Standing Exercise Name HEP Side bilateral Resistance level 3 band Equipment Used @ //bars, hand support balance Reps/Minutes 15x5 ea Comments cued quad set lateral stepping Standing Exercise Name HEP Side bilateral Resistance level 3 band at thighs > shins Equipment Used squat position Reps/Minutes 10 ft x 2 sets ea Manual Therapy Treatment Consent Patient gave verbal consent for manual Yes treatment Soft Tissue Mobilization LLE Body Location quad, iliopsoas, ITB Mobilization Type Rolling,Strumming,Sustained Pressure Intensity/Depth Moderate Body Position Hooklying Comments Less tenderness today at ITB and TFL, quad. Other Other Manual Treatments No lateral patellar tracking PT-OP-T Assessment and Plan Start: 04/18/24 16:11 Freq: Status: Active Protocol: Document 05/03/24 08:13 NM (Rec: 05/03/24 08:58 NM [id number]) Physical Therapy Assessment Goals Three Impairment pain with stairs, ambulation Short Term Goal (STG) Pt will report that she can ambulate >1/2 mi with hip/knee pain <4/10 in order to demonstrate improved activity tolerance and symptom management 05/03/24: pt reports can ambulate 2 miles without hip or knee pain STG Duration 06/02/24 MET Licensed Retail Supervisor Goal (LTG) Pt will report <4/10 hip/knee pain during at least 10 stairs (with or without rail use) in order to demonstrate improved functional mobility in household and community 05/03/24: step ups initiated in session forward and laterally without knee pain during session LTG Duration 06/16/24 Two Impairment NAM 30% impaired; poor tolerance with standing, transfers Assisted Goal (LTG) Pt will decrease Oswestry <15% impairment in order to demonstrate improved symptom management LTG Duration 06/02/24 One Impairment not performing HEP or strengthening program for symptom management Short Term Goal (STG) HEP will be initiated and pt will demo progressive IND with HEP for improved symptom management 2/14/25: initiated at evaluation, added to during session; compliant with HEP 05/03/24: Compliant with HEP STG Duration 05/12/24 MET Assisted Goal (LTG) Pt will be IND with HEP, performing at least 2-3x/wk in order to maximize progression with PT and transition to maintenance for symptom management upon discharge 05/03/24: IND with HEP, compliant LTG Duration 06/16/24 MET Progress Towards Goals Progress Towards Goals Progressing Toward Goals Assessment Summary Assessment Pt continues to respond well to therapeutic exercise targeting quad and glute strength, including progressions. Progressed to resisted stepping, including with longer lever arm using band. No pain with forward or lateral step ups. Minimal cues for alignment other than intermittently for execution. Pt progressing well toward goals. Progressing toward goals, met STGs today. Would continue to benefit from skilled PT for progressive symptom management. Physical Therapy Plan Frequency and Duration Frequency of Treatment 2x/Week Duration of treatment (weeks) 8 Plan of Care Start Date 04/19/24 Plan of Care End Date 06/16/24 Therapeutic Interventions Therapeutic Interventions Balance Training,Gait Training ,Home Exercise Program,Joint Mobilizations,Manual Therapy, Neuromuscular Re-education, Orthotic/Prosthetic Management ,Patient/Caregiver Education, Self-Care/Home Management, Sensory Integration,Soft Tissue Mobilization,Taping, Therapeutic Activities, Therapeutic Exercises, Vestibular Rehabilitation Modalities Cold Pack/Ice Massage,Electric Stimulation,Hot Packs, Ultrasound,Vasopneumatic Devices Other Therapeutic Interventions TrP treatment if appropriate Next Visit Focus/Plan Next Note Type Treatment Note Next Visit Plan review HEP. trial stairs and step down fwd and lat, B squat vs leg press vs wall squat, etc. trial tape for knee, possible patellar mechanics. trial progression to slider squat Hip mobility, hip stretching, glute/quad strengthening, core bracing, breathwork Manual: glutes, piriformis, ITB, hip mobilizations, soft tissue mobilization; hip mobilizations?
--- NOTE | 2024-05-08 15:17 | PT.OTN ---
Current Diagnoses Stiffness of right hip, not elsewhere classified (05/08/24) Stiffness of left hip, not elsewhere classified (05/08/24) Stiffness of other specified joint, not elsewhere classified (05/08/24) Sciatica, left side (05/08/24) Difficulty in walking, not elsewhere classified (05/08/24) Weakness (05/08/24) Physical Therapy Treatment Note PT-OP-A Visit Information Start: 04/18/24 16:11 Freq: Status: Active Protocol: Document 05/08/24 14:33 NM (Rec: 05/08/24 15:17 NM [id number]) Out-Patient Physical Therapy Visit Information Visit Information Visit Type Treatment Note Visit Start Time 14:34 Visit Stop Time 15:14 Visit Number 6 Evaluation Information Evaluation Date 04/19/24 PT-OP-B Current Condition Start: 04/18/24 16:11 Freq: Status: Active Protocol: Document 04/19/24 07:29 NM (Rec: 04/19/24 08:20 NM [id number]) Current Condition History of Current Condition Onset Date 1 month ago Current Complaints pain History of Current Condition Pt presents with L sided back/ hip pain, thinks that it's her sciatic nerve. She reports a hx of episodes 20 years ago. Denies back pain. Feels deep in her glute, dull ache in area. She reports 1 month ago, while standing up from rowing , she reports that she felt a sharp L sided pain from her buttocks down her lateral leg to her knee. She reports that sometimes she does not notice the pain at all, otherwise doesn't notice it. Minimal discomfort with sitting. However, increased pain with transition from sitting > standing, standing/moving, sleeping (primarily feels in knee), stairs, extension. No numbness or tingling. No changes to ability to control Bowel/bladder. Worse with trunk extension, better with knee extension. No changes with yoga, but does not help. Reports that in the last year, has been primarily more sedentary. Does rowing machine several times/week, currently not rowing outdoors due to weather. Prior Treatments and Tests No imaging Treatment Goals Patient/Caregiver Goals LTG to reduce worry about this kicking- start exercise regimen to help prevent Current Functional Impairments (Reported) Functional Limitations- Work/School vacuuming PT-OP-C Subjective Start: 04/18/24 16:11 Freq: Status: Active Protocol: Document 05/08/24 14:33 NM (Rec: 05/08/24 15:17 NM [id number]) OP-PT Subjective Patient Comments Patient Comments Pt reports that her hips are feeling good. Occasionally feels outside of knee painfully (reports very mild, more tender), only after finishing all exercises. Pt reports changes exercise order every day so unsure if a specific exercise is bothering her. Has been rowing in rowing club, does not push against wooden block for feet except to stabilize. PT-OP-F Manual Assessment Start: 04/18/24 16:11 Freq: Status: Active Protocol: Document 04/19/24 07:29 NM (Rec: 04/19/24 08:20 NM [id number]) Manual Assessments Soft Tissue Assessment Soft Tissue Mobility Assessment Increased restrictions and tenderness along glutes/ piriformis and ITB Joint Mobility Assessment Joint Mobility Assessment Decreased hip AROM and PROM into ER/IR especially with flexion, hip extension supplemented by lumbar extension Hypomobility of B hips, lumbar spine PT-OP-G Mobility & Gait Start: 04/18/24 16:11 Freq: Status: Active Protocol: Document 04/19/24 07:29 NM (Rec: 04/19/24 13:25 NM [id number]) OP Gait Assessment Gait Gait Assistance Required: Independent Distance (Feet) 150 Comments Gait Comments Mildly antalgic with L stance, decreased hip and trunk rotation, stiffness overall PT-OP-J Posture/Palpation/Skin Start: 04/18/24 16:11 Freq: Status: Active Protocol: Document 04/19/24 07:29 NM (Rec: 04/19/24 08:20 NM [id number]) Posture Evaluation Position Standing Head/C-Spine Posture Forward Head Shoulder Posture (L) Rounded,(R) Rounded Pelvis Posture Anteriorly Tilted Hip Posture (L) Externally Rotated,(R) Externally Rotated Palpation Assessment Location lumbar spine Palpation Details No tenderness along lumbar spine or SIJ or lumbar paraspinals, hypomobility with PA springing L hip Palpation Details Tenderness along L glutes and piriformis, especially in muscle belly but still tenderness along to greater trochanter Tenderness following ITB especially toward knee, but not tender at knee laterally or at joint line Tightness of hip flexors, TFL PT-OP-K Range of Motion Start: 04/18/24 16:11 Freq: Status: Active Protocol: Document 04/19/24 07:29 NM (Rec: 04/19/24 08:20 NM [id number]) Lumbar Spine Range of Motion Lumbar Spine Active Percentage Flexion 100 Extension 100 Rotation Left 10 Rotation Right 100 Lateral Flexion Left 75 Lateral Flexion Right 100 Comments L LF reproduce symptoms in posterior hip Hip Goniometric Range of Motion Hip Right Flexion w/Knee Flexed 110 Extension 8 Internal Rotation 25 External Rotation 30 Left Flexion w/Knee Flexed 120 Extension 10 Internal Rotation 30 External Rotation 25 PT-OP-L Special Tests Start: 04/18/24 16:11 Freq: Status: Active Protocol: Document 04/19/24 07:29 NM (Rec: 04/19/24 08:20 NM [id number]) Special Tests Lumbar Spine Special Tests Straight Leg Raise Test Results - SLR, + c/ adduction Slump Test Results - traction Test Results + alexander/quadrant Test Results + Hip Special Tests FADIR Test Results - CUAUHTEMOC Test Results - Knee Special Tests Vik's Test Test Results + PT-OP-M Strength Start: 04/18/24 16:11 Freq: Status: Active Protocol: Document 04/19/24 07:29 NM (Rec: 04/19/24 08:20 NM [id number]) Trunk Strength Trunk Manual Muscle Testing Flexion 4 Good Extension 4 Good Rotation Left 4 Good Rotation Right 4 Good Lateral Flexion Left 4 Good Lateral Flexion Right 4 Good Hip Strength Hip Manual Muscle Testing Right Flexion (L2) 4 Good Extension (S1) 4 Good Abduction 4 Good Adduction 4 Good External Rotation 4 Good Internal Rotation 4 Good Left Flexion (L2) 4- Good- Extension (S1) 4- Good- Abduction 4 Good Adduction 4 Good External Rotation 4- Good- Internal Rotation 4- Good- Comments no pain with resisted testing Knee Strength Knee Manual Muscle Testing Right Flexion (S2) 4 Good Extension (L3) 4 Good Left Flexion (S2) 4 Good Extension (L3) 4 Good Comments no pain with resisted testing PT-OP-Q Treatments Start: 04/18/24 16:11 Freq: Status: Active Protocol: Document 05/08/24 14:33 NM (Rec: 05/08/24 15:17 NM [id number]) Therapeutic Exercises Standing Exercises step down Standing Exercise Name trialed in PT: 1. fwd, 2. lateral Side bilateral Equipment Used 4 step, 1 UE support Reps/Minutes 1. 2x8 ea, 2. 8 ea Comments cued alignment jason level pelvis; mirror for visual cues step up Standing Exercise Name 1. 8 fwd step up, 2. 8 step up Side bilateral Equipment Used no UE support Reps/Minutes 15 ea Comments cued alignment to 2nd toe retro stepping Standing Exercise Name HEP review Side bilateral Resistance level 3 band at ankles Reps/Minutes 2 sets x 20 ft, close SBA Comments issued level 4 blue band for progressions as neeed lateral stepping Standing Exercise Name HEP review Side bilateral Resistance level 3 band at ankles Equipment Used squat position Reps/Minutes 2 sets x 20 ft Comments fatiguing, but no pain Neuro Re-Education Treatment Balance Activities SLS Details close SBA Reps/Duration 10 min Comments 1. for time: 2x30, able to achieve with both LE, stable surface 2. foam pad: 3x20 ea, RLE more challenging; prn hand support needed to stabilize 3. clock taps, 5 reps 4. ball toss at wall: fwd and lateral position, c/ small teal ball Cued posture, neutral foot position, gluteal activation/ core activation. lateral movements more challenging, needs to put foot down more frequently PT-OP-T Assessment and Plan Start: 04/18/24 16:11 Freq: Status: Active Protocol: Document 05/08/24 14:33 NM (Rec: 05/08/24 15:17 NM [id number]) Physical Therapy Assessment Goals Three Impairment pain with stairs, ambulation Short Term Goal (STG) Pt will report that she can ambulate >1/2 mi with hip/knee pain <4/10 in order to demonstrate improved activity tolerance and symptom management 05/03/24: pt reports can ambulate 2 miles without hip or knee pain STG Duration 06/02/24 MET Master Lay Out Specialist Goal (LTG) Pt will report <4/10 hip/knee pain during at least 10 stairs (with or without rail use) in order to demonstrate improved functional mobility in household and community 05/03/24: step ups initiated in session forward and laterally without knee pain during session 05/08/24: no pain during 8 step ups/down forward and laterally; LTG Duration 06/16/24 Two Impairment NAM 30% impaired; poor tolerance with standing, transfers Fpc Goal (LTG) Pt will decrease Oswestry <15% impairment in order to demonstrate improved symptom management LTG Duration 06/02/24 One Impairment not performing HEP or strengthening program for symptom management Short Term Goal (STG) HEP will be initiated and pt will demo progressive IND with HEP for improved symptom management 04/21/24: initiated at evaluation, added to during session; compliant with HEP 05/03/24: Compliant with HEP STG Duration 05/12/24 MET Fpc Goal (LTG) Pt will be IND with HEP, performing at least 2-3x/wk in order to maximize progression with PT and transition to maintenance for symptom management upon discharge 05/03/24: IND with HEP, compliant LTG Duration 06/16/24 MET Assessment Summary Assessment Pt tolerates progressions well , no knee or hip pain. Demos improved alignment of knee and pelvis level during step up, progressed to 8 height. Trialed step down for more dynamic glute strengthening and challenge to balance; mirror needed for visual feedback for form. Increased resistance for longer lever length on resisted stepping. PT and pt discussed possible discharge next session as doing well, managing pain with HEP and progressing toward goals. PT and pt in agreement. Physical Therapy Plan Frequency and Duration Frequency of Treatment 2x/Week Duration of treatment (weeks) 8 Plan of Care Start Date 04/19/24 Plan of Care End Date 06/16/24 Therapeutic Interventions Therapeutic Interventions Balance Training,Gait Training ,Home Exercise Program,Joint Mobilizations,Manual Therapy, Neuromuscular Re-education, Orthotic/Prosthetic Management ,Patient/Caregiver Education, Self-Care/Home Management, Sensory Integration,Soft Tissue Mobilization,Taping, Therapeutic Activities, Therapeutic Exercises, Vestibular Rehabilitation Modalities Cold Pack/Ice Massage,Electric Stimulation,Hot Packs, Ultrasound,Vasopneumatic Devices Other Therapeutic Interventions TrP treatment if appropriate Next Visit Focus/Plan Next Note Type Progress Note Next Visit Plan review/condense HEP. stairs and step down fwd and lat, slider squat vs clock. trial tape for knee/ITB. Hip mobility, hip stretching, glute/quad strengthening, core bracing, breathwork Manual: glutes, piriformis, ITB, hip mobilizations, soft tissue mobilization; hip mobilizations?
--- NOTE | 2024-05-16 10:38 | PT.OTN ---
Current Diagnoses Stiffness of right hip, not elsewhere classified (05/16/24) Stiffness of left hip, not elsewhere classified (05/16/24) Stiffness of other specified joint, not elsewhere classified (05/16/24) Sciatica, left side (05/16/24) Difficulty in walking, not elsewhere classified (05/16/24) Weakness (05/16/24) Physical Therapy Treatment Note PT-OP-A Visit Information Start: 04/18/24 16:11 Freq: Status: Active Protocol: Document 05/16/24 08:19 NM (Rec: 05/16/24 09:01 NM [id number]) Out-Patient Physical Therapy Visit Information Visit Information Visit Type Progress Note Visit Start Time 08:19 Visit Stop Time 09:00 Visit Number 7 Evaluation Information Evaluation Date 04/19/24 PT-OP-B Current Condition Start: 04/18/24 16:11 Freq: Status: Active Protocol: Document 04/19/24 07:29 NM (Rec: 04/19/24 08:20 NM [id number]) Current Condition History of Current Condition Onset Date 1 month ago Current Complaints pain History of Current Condition Pt presents with L sided back/ hip pain, thinks that it's her sciatic nerve. She reports a hx of episodes 20 years ago. Denies back pain. Feels deep in her glute, dull ache in area. She reports 1 month ago, while standing up from rowing , she reports that she felt a sharp L sided pain from her buttocks down her lateral leg to her knee. She reports that sometimes she does not notice the pain at all, otherwise doesn't notice it. Minimal discomfort with sitting. However, increased pain with transition from sitting > standing, standing/moving, sleeping (primarily feels in knee), stairs, extension. No numbness or tingling. No changes to ability to control Bowel/bladder. Worse with trunk extension, better with knee extension. No changes with yoga, but does not help. Reports that in the last year, has been primarily more sedentary. Does rowing machine several times/week, currently not rowing outdoors due to weather. Prior Treatments and Tests No imaging Treatment Goals Patient/Caregiver Goals LTG to reduce worry about this kicking- start exercise regimen to help prevent Current Functional Impairments (Reported) Functional Limitations- Work/School vacuuming PT-OP-C Subjective Start: 04/18/24 16:11 Freq: Status: Active Protocol: Document 05/16/24 08:19 NM (Rec: 05/16/24 09:01 NM [id number]) OP-PT Subjective Patient Comments Patient Comments Pt reports that she is not having any discomfort in her hip and knee. She reports PT very helpful. Ready to be done today. She reports not questions/concerns about exercises. No difficulty with ADLs. PT-OP-F Manual Assessment Start: 04/18/24 16:11 Freq: Status: Active Protocol: Document 04/19/24 07:29 NM (Rec: 04/19/24 08:20 NM [id number]) Manual Assessments Soft Tissue Assessment Soft Tissue Mobility Assessment Increased restrictions and tenderness along glutes/ piriformis and ITB Joint Mobility Assessment Joint Mobility Assessment Decreased hip AROM and PROM into ER/IR especially with flexion, hip extension supplemented by lumbar extension Hypomobility of B hips, lumbar spine PT-OP-G Mobility & Gait Start: 04/18/24 16:11 Freq: Status: Active Protocol: Document 04/19/24 07:29 NM (Rec: 04/19/24 13:25 NM [id number]) OP Gait Assessment Gait Gait Assistance Required: Independent Distance (Feet) 150 Comments Gait Comments Mildly antalgic with L stance, decreased hip and trunk rotation, stiffness overall PT-OP-J Posture/Palpation/Skin Start: 04/18/24 16:11 Freq: Status: Active Protocol: Document 04/19/24 07:29 NM (Rec: 04/19/24 08:20 NM [id number]) Posture Evaluation Position Standing Head/C-Spine Posture Forward Head Shoulder Posture (L) Rounded,(R) Rounded Pelvis Posture Anteriorly Tilted Hip Posture (L) Externally Rotated,(R) Externally Rotated Palpation Assessment Location lumbar spine Palpation Details No tenderness along lumbar spine or SIJ or lumbar paraspinals, hypomobility with PA springing L hip Palpation Details Tenderness along L glutes and piriformis, especially in muscle belly but still tenderness along to greater trochanter Tenderness following ITB especially toward knee, but not tender at knee laterally or at joint line Tightness of hip flexors, TFL PT-OP-K Range of Motion Start: 04/18/24 16:11 Freq: Status: Active Protocol: Document 05/16/24 08:19 NM (Rec: 05/16/24 09:01 NM [id number]) Lumbar Spine Range of Motion Lumbar Spine Active Percentage Flexion 100 Extension 100 Rotation Left 100 Rotation Right 100 Lateral Flexion Left 100 Lateral Flexion Right 100 Comments L LF reproduce symptoms in posterior hip 05/17/23: no pain in hips or back with movement Hip Goniometric Range of Motion Hip Right Flexion w/Knee Flexed 110 Extension 8 Internal Rotation 30 External Rotation 30 Left Flexion w/Knee Flexed 120 Extension 10 Internal Rotation 30 External Rotation 30 PT-OP-L Special Tests Start: 04/18/24 16:11 Freq: Status: Active Protocol: Document 04/19/24 07:29 NM (Rec: 04/19/24 08:20 NM [id number]) Special Tests Lumbar Spine Special Tests Straight Leg Raise Test Results - SLR, + c/ adduction Slump Test Results - traction Test Results + alexander/quadrant Test Results + Hip Special Tests FADIR Test Results - [id number] Test Results - Knee Special Tests Vik's Test Test Results + PT-OP-M Strength Start: 04/18/24 16:11 Freq: Status: Active Protocol: Document 05/16/24 08:19 NM (Rec: 05/16/24 09:01 NM [id number]) Trunk Strength Trunk Manual Muscle Testing Flexion 4 Good Extension 4 Good Rotation Left 4 Good Rotation Right 4 Good Lateral Flexion Left 4 Good Lateral Flexion Right 4 Good Hip Strength Hip Manual Muscle Testing Right Flexion (L2) 4+ Good+ Extension (S1) 4+ Good+ Abduction 4+ Good+ Adduction 4+ Good+ External Rotation 4+ Good+ Internal Rotation 4+ Good+ Left Flexion (L2) 4+ Good+ Extension (S1) 4+ Good+ Abduction 4+ Good+ Adduction 4+ Good+ External Rotation 4+ Good+ Internal Rotation 4+ Good+ Comments no pain with resisted testing PT-OP-Q Treatments Start: 04/18/24 16:11 Freq: Status: Active Protocol: Document 05/16/24 08:19 NM (Rec: 05/16/24 09:01 NM [id number]) Therapeutic Exercises Supine Exercises SLR Supine Exercise Name verbal review, did not perform in session Comments edu to perform post TFL stretch figure 4 stretch Supine Exercise Name verbal review, did not perform in session Sidelying Exercises TFL stretch Sidelying Exercise Name verbal review, did not perform in session quad stretch Sidelying Exercise Name verbal review, did not perform in session Sitting Exercises sit to stand Sitting Exercise Name squat (HEP review) Side bilateral Resistance level 4 band at thighs Reps/Minutes 1st set c/ band, 2nd c/ wt Comments cued form for less trunk flex Standing Exercises step down Standing Exercise Name HEP: 1. fwd, 2. lateral Side bilateral Equipment Used 6 step, 1 hand support Reps/Minutes 1. 2x10 ea, 2. 2x10 Comments cued control jason at pelvis, improved c/ reps; no pain retro stepping Standing Exercise Name HEP review Side bilateral Resistance level 4 band thighs Reps/Minutes 3 sets x 15 ft TKE Standing Exercise Name HEP review Side bilateral Resistance level 4 band Equipment Used @ //bars, hand support balance Reps/Minutes 20x5 ea Comments improved quad set; cued for longer hold for better quad lateral stepping Standing Exercise Name HEP review Side bilateral Resistance level 4 band thighs Equipment Used squat position Reps/Minutes 3 sets x 15 ft Other Exercises stairs Equipment Used reciprocal, no rail use Reps/Minutes 12 steps Comments no knee or hip pain PT-OP-T Assessment and Plan Start: 04/18/24 16:11 Freq: Status: Active Protocol: Document 05/16/24 08:19 NM (Rec: 05/16/24 09:01 NM [id number]) Physical Therapy Assessment Goals Three Impairment pain with stairs, ambulation Short Term Goal (STG) Pt will report that she can ambulate >1/2 mi with hip/knee pain <4/10 in order to demonstrate improved activity tolerance and symptom management 05/03/24: pt reports can ambulate 2 miles without hip or knee pain STG Duration 06/02/24 MET Skilled Nursing Goal (LTG) Pt will report <4/10 hip/knee pain during at least 10 stairs (with or without rail use) in order to demonstrate improved functional mobility in household and community 05/03/24: step ups initiated in session forward and laterally without knee pain during session 05/08/24: no pain during 8 step ups/down forward and laterally; 05/16/24: pt reports 0/10 pain during stairs, 12 stairs reciprocally LTG Duration 06/16/24 MET Two Impairment NAM 30% impaired; poor tolerance with standing, transfers Skilled Nursing Goal (LTG) Pt will decrease Oswestry <15% impairment in order to demonstrate improved symptom management 05/16/24: 0% impairment LTG Duration 06/02/24 MET One Impairment not performing HEP or strengthening program for symptom management Short Term Goal (STG) HEP will be initiated and pt will demo progressive IND with HEP for improved symptom management 04/21/24: initiated at evaluation, added to during session; compliant with HEP 05/03/24: Compliant with HEP STG Duration 05/12/24 MET Core Dropper Goal (LTG) Pt will be IND with HEP, performing at least 2-3x/wk in order to maximize progression with PT and transition to maintenance for symptom management upon discharge 05/03/24: IND with HEP, compliant LTG Duration 06/16/24 MET Progress Towards Goals Progress Towards Goals Goals Met Assessment Summary Assessment Pt continues to have good tolerance for exercises and no pain with any activity. Demos good tolerance for stairs using reciprocal pattern, able to carryover at home without pain or limitations. Progressed to level 4 band for resisted activities, minimal cues needed for form but regressed to shorter lever arm due to resistance increase. Able to perform step downs in multiple directions without pain or limitation; cueing needed only for correct execution to limit compensations, improved with form. Added resistance to squats. Physical Therapy Plan Frequency and Duration Frequency of Treatment 2x/Week Duration of treatment (weeks) 8 Plan of Care Start Date 04/19/24 Plan of Care End Date 06/16/24 Therapeutic Interventions Therapeutic Interventions Balance Training,Gait Training ,Home Exercise Program,Joint Mobilizations,Manual Therapy, Neuromuscular Re-education, Orthotic/Prosthetic Management ,Patient/Caregiver Education, Self-Care/Home Management, Sensory Integration,Soft Tissue Mobilization,Taping, Therapeutic Activities, Therapeutic Exercises, Vestibular Rehabilitation Modalities Cold Pack/Ice Massage,Electric Stimulation,Hot Packs, Ultrasound,Vasopneumatic Devices Other Therapeutic Interventions TrP treatment if appropriate Discharge Physical Therapy Discharge Reasons Goals Met Discharge Comments All goals met. Pt progressing well with symptom management. Reports no limitations in ability to perform ADLs/IADLs due to back/hip/knee. Compliant with HEP. PT and pt discussed discharge from PT to maintenance program, 3x/wk for at least 6 months. PT and pt in agreement. PT also educated pt on returning with new referral for tune up if needed, follow up with PCP or specialist if symptoms return, change, or worsen. Pt verbalizes understanding. Next Visit Focus/Plan Next Note Type Discharge Summary Next Visit Plan discharge from PT
== END 2024-05-18 08:42 | disposition home or self-care (01) ==
LOC: PHYS 08:15
PROVIDERS: Family Provider Student in an Organized Health Care Education/Training Program; PCP Student in an Organized Health Care Education/Training Program; Referring Provider Student in an Organized Health Care Education/Training Program; Visit Provider Student in an Organized Health Care Education/Training Program
DX: M54.32 Sciatica, left side (principal); M25.652 Stiffness of left hip, not elsewhere classified; M25.651 Stiffness of right hip, not elsewhere classified; M25.69 Stiffness of other specified joint, not elsewhere classified; R53.1 Weakness; R26.2 Difficulty in walking, not elsewhere classified
CPT/HCPCS: 97110; 97112; 97140; 97161

== ENCOUNTER → 2025-02-13 07:55 | Outpatient (CLI) | payer MEDICARE, OTHER, SELFPAY ==
--- NOTE | 2025-02-13 07:58 | DI.ECHO.S_ITS ---
[facility] : : [id number] : [place] : : [id number] : : Phone: [phone] Echocardiogram Report + + :Name: SANTIAGO RAMIREZ Study Date: 02/13/2025 Height: 68 in : :[facility] ReadingLocation: Weight: 155 lb : : Gender: Female BSA: 1.8 m2 : :: 1950 Age: 74 yrs BP: 130/80 mmHg: :Reason For Study: Mitral valve regurgitation : :Ordering Physician: NIKHIL, : :CHRIST Performed By: Cy Palafox : :Referring: CHRIST REYES : + + Interpretation Summary 1) Normal left ventricular thickness, size, wall motion,a nd systolic function (EF 60-65%). 2) Normal right ventricular size and function. 3) There is mild to moderate mitral regurgitation. 4) Compmared to the Echo done 01/07/2023, no significant change. Procedure: A two-dimensional transthoracic echocardiogram with color flow and Doppler was performed. The study quality was technically adequate. Comparison is made with the echocardiogram of 01/07/2023. The patient had frequent PVCs during the exam. Left Ventricle: The left ventricle is normal in size. Left ventricular wall thickness is borderline increased. Left ventricular systolic function is normal. The ejection fraction is estimated to be 60-65%. There are no focal wall motion abnormalities. Diastolic function is indeterminate. Right Ventricle: The right ventricle is normal in size and function. Atria: The left atrium is mildly dilated. Right atrial size is normal. There is no Doppler evidence for an interatrial shunt. Mitral Valve: The mitral valve leaflets appear to open well. There is no mitral valve stenosis. There is mild to moderate mitral regurgitation. There is an eccentric jet of mitral regurgitation that is directed posteriorly. Aortic Valve: The aortic valve is trileaflet. There is no hemodynamically significant valvular aortic stenosis. The calculated aortic valve area is 2.1 cm2. The peak aortic velocity is 1.9 m/sec. The aortic valve mean gradient is 7.6 mmHg. sev ratio: 0.71. There is mild aortic regurgitation. Tricuspid Valve: The tricuspid valve is not well visualized, but is grossly normal. There is mild tricuspid regurgitation. The right ventricular systolic pressure is estimated to be at least 40 mmHg based on an estimated right atrial pressure of 15 mm Hg. Pulmonic Valve: The pulmonic valve is not well visualized. There is trace pulmonic regurgitation. Great Vessels: The aortic root is normal size. Proximal ascending aorta not well visualized,. The aortic arch could not be visualized. The pulmonary is not well visualized. The IVC is dilated (diameter is greater than 2.1 cm) and it collapses less than 50% with a sniff. This suggests a high right atrial pressure of 15 mm Hg. Pericardium/ Pleura No significant pericardial effusion. MMode/2D Measurements & Calculations LVIDd: 4.9 cm LVOT diam: 2.0 cm LVIDs: 3.4 cm Ao root diam: 3.2 cm FS: 31.6 % asc Aorta Diam: 3.4 cm IVSd: 0.96 cm LVPWd: 0.94 cm LV knowles. diameter/BSA (cm/m^2): 2.7 LV sys. diameter/BSA (cm/m^2): 1.8 LA A2 area: 22.1 cm2 RA long axis: 4.4 cm LA A4 area: 22.8 cm2 RA area: 11.1 cm2 LA length (vol): 5.6 cm RA vol: 23.7 ml LA vol: 75.8 ml RA : 12.9 ml/m2 LA vol index: 41.3 ml/m2 IVC diam: 2.5 cm RVD1 (basal): 3.4 cm RVD2 (mid): 2.7 cm TAPSE: 2.5 cm Doppler Measurements & Calculations Ao V2 max: 187.5 cm/sec LVOT Max Jerson: 120.3 cm/sec Ao V2 mean: 131.2 cm/sec LV V1 max P.8 mmHg Ao max P.1 mmHg LV V1 VTI: 26.7 cm Ao mean P.6 mmHg MIHIR(I,D): 2.3 cm2 Ao V2 VTI: 37.4 cm MIHIR(V,D): 2.1 cm2 sev ratio: 0.71 MIHIR indexed to BSA (cm^2/m^2): 1.3 AI P1/2t: 657.9 msec AI dec slope: 205.7 cm/sec2 MV E max jerson: 82.4 cm/sec TR max jerson: 250.3 cm/sec MV A max jerson: 48.6 cm/sec TR max P.1 mmHg MV E/A: 1.7 PA V2 max: 116.4 cm/sec Med Peak E' Jerson: 8.2 cm/sec PA V2 mean: 81.8 cm/sec E/E' med: 10.0 PA mean P.0 mmHg Lat Peak E' Jerson: 11.7 cm/sec PA pr(Accel): 23.8 mmHg E/E' lat: 7.0 E/e' average: 8.5 MV dec time: 0.26 sec MR VTI: 204.1 cm SV(LVOT): 87.5 ml Reading Physician:07:21 PM
== END ==
LOC: ECHO 07:58
PROVIDERS: Family Provider Student in an Organized Health Care Education/Training Program; PCP Student in an Organized Health Care Education/Training Program; Referring Provider Internal Medicine Cardiovascular Disease; Visit Provider Internal Medicine Cardiovascular Disease
DX: I08.3 Combined rheumatic disorders of mitral, aortic and tricuspid valves (principal)
CPT/HCPCS: 93306

== ENCOUNTER → 2025-02-19 08:33 | Outpatient (CLI) | payer MEDICARE, OTHER, SELFPAY ==
[2025-02-19 10:10] LABS: Hematocrit 38.1 % (36-46); Hemoglobin 13.3 g/dL (12.0-16.0); Mean Corpuscular HGB Conc 34.9 % (30-36); Mean Corpuscular Hemoglobin 31.5 PG (26-34); Mean Corpuscular Volume 90.1 fL (80-100); Platelet Count 185 X10^3/uL (150-400)
[2025-02-19 10:27] LABS: Blood Urea Nitrogen 16 mg/dL (7-17); Calcium 9.2 mg/dL (8.4-10.2); Carbon Dioxide 26 mmol/L (22-32); Chloride 105 mmol/L (98-107); Cholesterol 178 mg/dL (140-199); Estimated Glomerular Filt Rate > 60 mL/min (>60); Glucose 89 mg/dL (70-99); HDL Cholesterol 91 mg/dL (40-60); HEMOLYSIS < 15 (0-50); Potassium 4.4 mmol/L (3.4-5.1); Sodium 140 mmol/L (137-145); Triglycerides 66 mg/dL (35-150)
== END ==
PROVIDERS: Family Provider Student in an Organized Health Care Education/Training Program; PCP Student in an Organized Health Care Education/Training Program; Referring Provider Student in an Organized Health Care Education/Training Program; Visit Provider Internal Medicine Cardiovascular Disease
DX: E78.5 Hyperlipidemia, unspecified (principal); I10 Essential (primary) hypertension
CPT/HCPCS: 36415; 80048; 80061; 85027